=== PATIENT | male | born 1945 | race Caucasian/White ===

== ENCOUNTER → 2020-04-12 06:45 | Outpatient (CLI) | payer MEDICARE, SELFPAY ==
[2020-04-04 10:36] VITALS: BMI 33.4
--- NOTE | 2020-04-12 13:01 | STRESSREP_ITS ---
Stress Test Report Date: 04-12-2020 Procedure: Exercise tolerance test/imaging study Indications: Syncope; PSVT; chest pain Consent: Per the patient Procedure: The patient exercised on a Viral protocol for 4 minutes and 15 seconds completing Stage I and 1 minute and 15 seconds of Stage II achieving a peak heart rate of 169 bpm (114% predicted maximal heart rate) with a peak blood pressure 192/84 mmHg and a peak MET capacity of 6 METs. The baseline ECG demonstrated sinus rhythm; right bundle branch block pattern. The peak exercise ECG demonstrated continued right bundle branch block pattern. There were occasional PVCs during exercise and early recovery. The functional capacity was considered decreased. There was no complaint of chest discomfort during exercise or recovery. The examination was discontinued secondary to dyspnea. Impression: 1. Technically adequate (percent predicted maximal heart rate greater than 85%) exercise tolerance test 2. Peak exercise ECG with continued right bundle branch block pattern 3. There were occasional PVCs during exercise and early recovery 4. Nuclear images pending Myocardial perfusion imaging study: Technique: The patient was injected with 14.4 mCi of technetium 99m Cardiolite and subsequently rest SPECT Cardiolite nuclear imaging was obtained in the horizontal long, vertical long, and short axis views. The patient exercised on a Viral protocol for 4 minutes and 15 seconds completing Stage I and 1 minute and 15 seconds of Stage II achieving a peak heart rate of 169 bpm (114% predicted maximal heart rate) with a peak blood pressure 192/84 mmHg and a peak MET capacity of 6 METs. The patient was injected with 44.5 mCi of technetium 99m Cardiolite and subsequently stress SPECT Cardiolite nuclear imaging was obtained in the horizontal long, vertical long, and short axis views. A gated Cardiolite study at peak stress was obtained. Interpretation: Rest and stress SPECT Cardiolite nuclear imaging status post realignment, normalization, and attenuation correction, demonstrates the appearance at rest of diminished tracer uptake in portions of the distal anterior/anteroapical segments and status post stress the appearance of diminished tracer uptake in portions of the mid to distal anterior/anterior apical segments. There is end systolic thickening and brightening. The gated Cardiolite study demonstrates myocardial thickening and inward wall motion. The reported LVEF is 57%. Impression: 1. Rest and stress SPECT Cardiolite nuclear imaging demonstrate myocardial pe rfusion changes potentially compatible with an area of previous myocardial injury/infarction in the anterior/anteroapical segments with post-rest myocardial perfusion changes potentially compatible with an area of taylor-infarct related myocardial ischemia. 2. The gated Cardiolite study reports an LVEF of 57%. This note was generated with [employer]affold[employer] software. It may contain incorrect words, spelling, and punctuation that were not noted in checking the note before signing.
== END ==
PROVIDERS: Visit Provider Internal Medicine Cardiovascular Disease
DX: R55 Syncope and collapse (principal); I47.1 Supraventricular tachycardia; E78.00 Pure hypercholesterolemia, unspecified; I10 Essential (primary) hypertension; C85.10 Unspecified B-cell lymphoma, unspecified site; I49.3 Ventricular premature depolarization; R07.9 Chest pain, unspecified
CPT/HCPCS: 78452; 93017; 93225; 93226; A9500; A4216

== ENCOUNTER 2020-04-26 07:31 | Day surgery (SDC) | payer MEDICARE, SELFPAY ==
[2020-04-04 10:36] VITALS: BMI 33.4
--- NOTE | 2020-04-20 08:49 | RAD_ITS ---
STUDY: X-RAY CHEST REASON FOR EXAM: Male, 75 years old. Shortness of breath, intermittent chest pain. TECHNIQUE: PA and lateral views of the chest. COMPARISON: None. FINDINGS: A right-sided portacatheter is seen with the tip at the junction of the superior vena cava and right atrium. The lungs are clear and expanded. There is no demonstrated pleural abnormality. Normal size heart. Normal mediastinum and sol. Normal visualized pulmonary arteries. There is atherosclerotic calcification of the aortic arch with tortuosity. There are mild degenerative changes of the visualized thoracic spine. Normal visualized ribs, clavicles, and shoulders. There is no demonstrated abnormality of the visualized soft tissue structures of the upper abdomen. RAD/Chest PA and Lateral IMPRESSION: No acute abnormality is seen. Electronically Signed: Broderick Saul MD at 9:29 EST , Service support ,
[2020-04-20 10:27] LABS: Hematocrit 38.4 % (40-54); Hemoglobin 12.9 g/dL (13.0-16.5); Mean Corp Hgb Conc 33.6 g/dL (32-36); Mean Corpuscular Hgb 31.6 pg (27.0-32.0); Mean Corpuscular Volume 94.1 fL (80-94); Mean Platelet Vol. 9.6 fl (6.2-12.0); Platelet Count 179 K/mm3 (150-450); RBC Distribution Width CV 12.4 % (11.6-14.6); RBC Distribution Width SD 42.6 fl (35.1-43.9); Red Blood Count 4.08 M/mm3 (4.6-6.2)
[2020-04-20 10:33] LABS: Prothrombin Time (Protime)PT. 12.4 SECONDS (11.7-14.9)
[2020-04-20 10:34] LABS: Partial Thromboplast Time 26.2 Seconds (24.1-36.2)
[2020-04-20 11:29] LABS: Anion Gap 6 (5-15); BUN 15 mg/dL (7-18); BUN/Creat Ratio 14.7 RATIO (10-20); Calcium,Total 8.5 mg/dL (8.5-10.1); Chloride 104 mmol/L (98-107); Creatinine, Serum 1.02 mg/dL (0.70-1.30); EST Glomerular Filtration Rate 76 mL/min (>60); Est Glom Filt Rate - Afr Amer 92 mL/min (>60); Glucose 86 mg/dL (74-106); Potassium 4.6 mmol/L (3.5-5.1); Sodium Level 135 mmol/L (136-145)
[2020-04-25 07:46] VITALS: BMI 33.4
[2020-04-26] VITALS (14 sets, daily range): BP systolic 122–148; BP diastolic 70–106; PULSE 54–75; RESP 14–20; TEMP 36.6–36.7; O2SAT 95–99
--- NOTE | 2020-04-26 06:50 | HP_ITS ---
HPI HPI History of Present Illness Details: This is a 75-year-old white male who presents today for outpatient cardiovascular consultation based upon concerns of a PSVT noted on recent transthoracic echocardiogram performed at the [facility] in preparation for upcoming chemotherapy for a diffuse large B-cell lymphoma. He states he has been evaluated by cardiology in the past including remote evaluation by Dr. Osvaldo Cordova which included an exercise tolerance test at [facility] in [place], [place] as well as since that time evaluation through the [facility] with an exercise tolerance test. He notes that these tests were being performed based upon a history of syncope. Along with these test he believes he had undergone evaluation with some form of ambulatory patient monitor. To the best of his knowledge his test revealed no findings and he did not require any additional medical therapy or diagnostic studies. He states that he does have occasional sensation of palpitations. He does not recall any palpitations during his recent transthoracic echocardiogram when he had his report of PSVT. He states he gets an uncomfortable feeling in his chest at times at home. He states it feels as if there is a knot in his chest. It does not radiate. It is not necessarily associated with nausea, emesis, or diaphoresis. He believes his breathing is somewhat short of breath because of his lymphoma which is primarily involving his lymph nodes in his neck. He has not had orthopnea or PND or worsening peripheral pitting edema. He states he has not had any recurrent syncopal spells. He had an ECG in the office today. He was noted to be in sinus rhythm with a right bundle branch block pattern. His [facility] transthoracic echocardiogram which was reported on 03-31-2020 stated his left ventricle was normal with an LV EF of 67% with trace to mild TR. His previous cardiovascular studies are unavailable for review. Intake Vital Signs 04/04/20 Height 5 ft 10 in 04/04/20 Weight: 233 lb 2 oz 04/04/20 BP 140/80 H 04/04/20 Blood Pressure Location Lt brachial 04/04/20 Position Sitting 04/04/20 Respiration 16 04/04/20 Pulse 76 04/04/20 Pulse Source Auscultation Intake Visit Reasons: TACHYCARDIA/ [facility] REFERRAL Dining [employer] Required: No Accompanied by: Self Is patient in pain?: No Allergies No Known Allergies Allergy (Unverified 04/04/20 10:36) Medications allopurinol 100 mg tablet 100 mg PO DAILY 04/01/20 [History Confirmed 04/04/20] cholecalciferol (vitamin D3) 125 mcg (5,000 unit) capsule 125 mcg PO DAILY 04/01/20 [History Confirmed 04/04/20] lisinopril 10 mg tablet 10 mg PO DAILY 04/01/20 [History Confirmed 04/04/20] oxycodone-acetaminophen 5 mg-325 mg tablet 1 tab PO Q6H PRN 04/01/20 [History Confirmed 04/04/20] pantoprazole 20 mg tablet,delayed release 20 mg PO DAILY 04/01/20 [History Confirmed 04/04/20] simvastatin 40 mg tablet 40 mg PO QHS 04/01/20 [History Confirmed 04/04/20] PFS Medical History Pure hypercholesterolemia (Chronic) Essential hypertension (Chronic) Large B-cell lymphoma (Chronic) Left renal mass (Chronic) Tachycardia (Acute) Follicular lymphoma (Chronic) History of prostate cancer (Acute) Surgical History History of bone marrow biopsy (Resolved) History of cataract surgery (Resolved) History of prostatectomy (Resolved) lymph nodes removed (Resolved) Social History (Updated 04/04/20 @ 11:[address] Niall Valadez MD) Smokeless tobacco user: chewing tobacco alcohol intake: current details: rare substance use type: does not use caffeine: Yes Type: coffee Number of servings: 3 ROS Const Const: Positive for fatigue (HX lymphona); negative for weakness, frequent falls, excessive sweating, weight gain or weight loss Eyes Eyes: Negative for transient loss of vision, blurry vision or change in vision ENT ENT: Negative for dizziness or balance problems Cardio Chest Pain: No Palpitations: No Edema: None Muscle aches with walking: None Resp Respiratory: Positive for SOB with activity (neck swollen at this time); negative for SOB at rest GI GI: Negative vomiting or vomiting blood/hematemesis : Negative for hematuria Musc Musc: Negative for muscle aches/ myalgia, muscle weakness, joint pain or balance problems Skin Skin: Negative non-healing lesions or rash Neuro Neuro: Positive for syncope (x4-5yrs ago,nothing recent); negative for dizziness, lightheadedness, orthostatic symptoms, frequent falls, weakness or blurry vision Aaron Hematologic/Lymphatic: Negative for easy bleeding Endo Endo: Positive for fatigue (HX lymphona); negative for excessive sweating Psych Psych: Negative for anxiety or depression Allergy Allergy/Immunology: Negative for hives, Negative for rash Cardiology Exam Const Appearance: cooperative, healthy appearing, comfortable, no acute distress, well developed and well groomed Nutritional Appearance: obese Orientation: alert, awake and oriented x3 Head Head: normal to inspection, normocephalic and atraumatic Ears: hearing grossly normal bilaterally Nose: external nose normal Face and Sinus: face symmetric Eyes Eyelids: eyelids normal Conjunctivae: conjunctivae normal Pupils: PERRL EOM: EOM intact bilaterally Neck Neck: normal visual inspection and full ROM Carotids: normal carotid upstroke Chest Chest inspection: normal inspection of the chest, symmetric chest movement and normal respiratory effort Auscultation: Bilateral: Clear to Auscultation Cardio Palpation: normal PMI Rate: regular rate Rhythm: regular rhythm Heart sounds: S1 normal and S2 normal GI GI: normal to inspection, soft, bowel sounds present and obese Neuro General: alert, awake, oriented x3 and moves all extremities Skin Skin: no rashes or lesions noted Extremities Pulses: Normal: Right Radial Pulse, Left Radial Pulse Lower Extremity Edema: None: Bilateral Psych Psychological: normal affect Assessment & Plan 1. Paroxysmal supraventricular tachycardia I47.1 Plan He is reported as having an episode of PSVT during his transthoracic echocardiogram. There were no cardiac rhythm strips available for review. At the present time he appears to be without acute symptoms or adverse events. He will be asked to have an outpatient Holter monitor and attempt to assess his average rate and rhythm to assist in his evaluation and care. Depending upon his clinical course he may or may not need other forms of ambulatory cardiac monitoring devices. Orders Orders: Cardiac Holter Monitor, Set-Up Today Nuclear Stress Test - [facility] Today 2. Syncope, unspecified syncope type R55 Plan He has a remote history of syncope. He states he is undergone cardiovascular evaluation for this in the past with no definitive diagnosis. An attempt will be made to retrieve copies of his previous cardiovascular studies. Orders Orders: Cardiac Holter Monitor, Set-Up Today Nuclear Stress Test - [facility] Today 3. Pure hypercholesterolemia E78.00 Plan Is increase his cardiovascular risks. He is on medical management. Orders Orders: Cardiac Holter Monitor, Set-Up Today Nuclear Stress Test - Treadmil Today 4. Essential hypertension I10 Plan He has a history of hypertension. He will continue his medical therapy at this time. Orders Orders: Cardiac Holter Monitor, Set-Up Today Nuclear Stress Test - [facility] Today 5. Precordial pain R07.2 Plan He describes a history of precordial chest discomfort. It is unclear whether this is cardiovascular noncardiovascular related. Based upon his history, his recent objective findings, it was felt reasonable that he should be screened for further cardiovascular concerns with an exercise tolerance test/imaging study to evaluate for any obvious underlying CAD/myocardial ischemia that would warrant further evaluation and care. 6. Large B-cell lymphoma C85.10 Plan He has a history of large B-cell lymphoma. He will continue under the care of [facility] oncology. Orders Orders: Cardiac Holter Monitor, Set-Up Today Nuclear Stress Test - [facility] Today Plan Detail Other Orders Orders: 12 Lead EKG performed by [facility] Today R00.0 Additional Comments Overall from a cardiac standpoint he will continue his cardiovascular evaluation. He will also continue to follow with [facility] hematology/oncology for his lymphoma evaluation and care. It does not appear at this time it does not appear that he needs to withhold chemotherapy initiation pending further cardiac evaluation. Certainly if his clinical course changes this can be reconsidered. The above was discussed with him and he was agreeable to this approach. Follow Up 04/04/20 (copy of [facility] stress test) 3 Months (PFM) Coding Level of Care Code Off vis,new,level 4 Diagnoses Paroxysmal supraventricular tachycardia I47.1 Syncope, unspecified syncope type R55 ??Syncope type: unspecified Pure hypercholesterolemia E78.00 Essential hypertension I10 Precordial pain R07.2 ??Chest pain type: precordial pain Large B-cell lymphoma C85.10 Coding Level of Care Code Off vis,new,level 4 Diagnoses Paroxysmal supraventricular tachycardia I47.1 Syncope, unspecified syncope type R55 ??Syncope type: unspecified Pure hypercholesterolemia E78.00 Essential hypertension I10 Precordial pain R07.2 ??Chest pain type: precordial pain Large B-cell lymphoma C85.10 Supplemental Info Supplemental Information Diagnostics Electrocardiogram 04/04/20 I have examined the patient the following changes are noted: The patient has undergone subsequent evaluation with an exercise tolerance test/nuclear imaging study. The results are noted below. Stress Test Report Date: 04-12-2020 Procedure: Exercise tolerance test/imaging study Indications: Syncope; PSVT; chest pain Consent: Per the patient Procedure: The patient exercised on a Viral protocol for 4 minutes and 15 seconds completing Stage I and 1 minute and 15 seconds of Stage II achieving a peak heart rate of 169 bpm (114% predicted maximal heart rate) with a peak blood pressure 192/84 mmHg and a peak MET capacity of 6 METs. The baseline ECG demonstrated sinus rhythm; right bundle branch block pattern. The peak exercise ECG demonstrated continued right bundle branch block pattern. There were occasional PVCs during exercise and early recovery. The functional capacity was considered decreased. There was no complaint of chest discomfort during exercise or recovery. The examination was discontinued secondary to dyspnea. Impression: 1. Technically adequate (percent predicted maximal heart rate greater than 85%) exercise tolerance test 2. Peak exercise ECG with continued right bundle branch block pattern 3. There were occasional PVCs during exercise and early recovery 4. Nuclear images pending Myocardial perfusion imaging study: Technique: The patient was injected with 14.4 mCi of technetium 99m Cardiolite and subsequently rest SPECT Cardiolite nuclear imaging was obtained in the horizontal long, vertical long, and short axis views. The patient exercised on a Viarl protocol for 4 minutes and 15 seconds completing Stage I and 1 minute and 15 seconds of Stage II achieving a peak heart rate of 169 bpm (114% predicted maximal heart rate) with a peak blood pressure 192/84 mmHg and a peak MET capacity of 6 METs. The patient was injected with 44.5 mCi of technetium 99m Cardiolite and subsequently stress SPECT Cardiolite nuclear imaging was obtained in the horizontal long, vertical long, and short axis views. A gated Cardiolite study at peak stress was obtained. Interpretation: Rest and stress SPECT Cardiolite nuclear imaging status post realignment, normalization, and attenuation correction, demonstrates the appearance at rest of diminished tracer uptake in portions of the distal anterior/anteroapical segments and status post stress the appearance of diminished tracer uptake in portions of the mid to distal anterior/anterior apical segments. There is end systolic thickening and brightening. The gated Cardiolite study demonstrates myocardial thickening and inward wall motion. The reported LVEF is 57%. Impression: 1. Rest and stress SPECT Cardiolite nuclear imaging demonstrate myocardial perfusion changes potentially compatible with an area of previous myocardial injury/infarction in the anterior/anteroapical segments with post-rest myocardial perfusion changes potentially compatible with an area of taylor-infarct related myocardial ischemia. 2. The gated Cardiolite study reports an LVEF of 57%. The patient has been recommended for further evaluation with diagnostic cardiac catheterization. The procedure and risks of been discussed with the patient. He is agreeable to this approach. The surgeon/proceduralist and patient have discussed in detail the risk of exposure to and/or potential harm posed by the COVID-19 virus with having a surgery/procedure at this time versus the risk of delaying the surgery/procedure. It is not possible to know either the risk of delaying the surgery or procedure or chance of getting an infection with perfect accuracy, but a joint decision was made between the patient and the surgeon/proceduralist to proceed at this time with the scheduled surgery/procedure as indicated on the consent form. I have re-examined the patient. There are no clinical changes since date of exam.
--- NOTE | 2020-04-26 12:15 | EKG12_ITS ---
Test Reason : PCI Blood Pressure : / mmHG Vent. Rate : 057 BPM Atrial Rate : 057 BPM P-R Int : 210 ms QRS Dur : 148 ms QT Int : 444 ms P-R-T Axes : 012 108 086 degrees QTc Int : 432 ms Sinus bradycardia with 1st degree A-V block Right bundle branch block Consider right ventricular involvement in acute inferior infarct Abnormal ECG No previous ECGs available Confirmed by LILLIE WHITE, BRENNEN ([id number]), technical writer and editor MARIA LUZ BRENNAN ([id number]) on 04/27/2020 1:24:18 PM Referred By: Niall Valadez Confirmed By:BRENNEN MOREIRA MD
--- NOTE | 2020-04-26 12:18 | PCI.CARDCATH ---
PCI Cardiac Cath Report PCI Report: Procedure performed; 1. Successful PCI of 80% stenosis mid LAD, with predilatation and placement of a drug-eluting stent 2.5 x 26 mm resolute/TORI. Post stent placement 0% stenosis. Preop procedure VIVIANA III flow and postprocedure VIVIANA-3 flow. 2. Postdilatation using 2.75 x 20 mm NC balloon up to 20 MAC and achievement of excellent result. 3. Successful PTCA of proximal RCA diffuse 80% stenosis, post PTCA is around 30% stenosis VIVIANA III flow in the RCA prior to PTCA and VIVIANA-3 flow post PTCA with no dissection or flow limitation. 4. Unable to place the stent in the RCA due to tortuosity and diffuse atherosclerosis. 5. Use of general anesthesia for removal of the guide catheter 6 Belarusian AL-1 due to severe spasm in the radial artery as well as kinking of the catheter Inside the 6 Bel[place]ian sheath. 6. TR band applied to right radial artery with no complication. Preprocedure details; 75-year-old patient with history of type B cell lymphoma currently on chemotherapy, patient underwent cardiac catheterization by Patient has evaluation in the office with the nuclear stress test which showed ischemia in the left anterior descending artery distribution. Based on his clinical presentation and having symptoms of shortness of breath on exertion he underwent cardiac catheterization which I reviewed and discussed in detail with the patient and Dr. Valadez, noted patient had diffuse atherosclerosis involving a large dominant RCA proximal to mid At least around 80% stenosis distal RCA prior to the bifurcation had around 40% stenosis eccentric atherosclerosis. He had left main which is normal with tapering of the left main, with nonobstructive atherosclerosis of around 30% of the distal left main, mid LAD at significant atherosclerosis involving the sidebranch small vessel. Ostial left circumflex had around 60 to 70%. Please refer to detailed cardiac authorization report by patient has borderline LV dysfunction EF probably around 50%. Consent risk benefits of the procedure explained in detail to the patient elected to proceed informed consent obtained. Sedation patient sedated with intravenous Versed and intravenous fentanyl. Interventional plan and equipment used; We proceed with the 6 Bel[place]ian JL 3.5 guide catheter engaged the left main coronary artery without difficulty, use run-through wire across the lesion in the LAD Then , proceed with predilatation using 2 x 15 mm balloon to the mid LAD followed by 2.5 x 26 mm drug-eluting stent/resolute placed in the mid LAD This is followed by 2.75 x 20 mm NC balloon, patient was given heparin a total of 7000 units of heparin initially ACT was 2.41 he was given additional 2000 units of heparin. Patient has been already on aspirin and Plavix this morning. Angiographic view of the LAD showed VIVIANA-3 flow pre and post procedure with reduction of stenosis from 80% mid LAD to 0% and excellent result. Then we proceed with the plan of, PCI of the large dominant RCA. We used JR4 guide catheter, run-through wire, BMW, choice PT extra-support wire, we engaged the RCA ostium and then we proceed with the wire across the lesion and then we predilated the lesion. The RCA is a large dominant with the large bend proximally in the RCA That make it difficult to place a stent, we use different wires, tan wire with the choice PT extra-support still unable to place a stent in the proximal to mid RCA. Then we change the plan of a guide catheter using AL-1 guide, noted kinking of the guide catheter at the site of the right radial artery sheath with difficulty of passing the wire. At this point with general incision he was given propofol to relax artery and we were able to remove the sheath as well at the AL-1 guide catheter as 1 part. With no complication. TR band applied to right radial artery to maintain hemostasis. Patient was given further 300 mg of Plavix in the Lead Java [id number] Developer. Recommendation and plan; Medical treatment with the dual antiplatelet therapy aspirin and Plavix for nearly 1 year if no complication and low-dose aspirin indefinitely. We will plan for elective PCI of the proximal to mid RCA using femoral approach due to the complexity of the lesion and difficulty of the guide catheter selection.
[2020-04-26] MEDS: 0.9% Normal Saline 1,000 ML 75 ML IV (12:42)
--- NOTE | 2020-04-26 13:06 | CRPHASE1 ---
Patient Communication Former Patient:: Phase I PHII Cardiac Rehab Discussed with Patient:: Yes Guide to Cardiac Rehab Given to Patient:: Yes Cardiac Rehab Facility Choice List Given to Patient:: Yes Choice Program [facility] CR PHII:: Communication Given to CR Choice Program Other:: Communication Given to CR Refer Phase II Cardiac Rehab:: Yes Sessions:: 36 sessions - 3 days/wk, 12 weeks Risk Factors/Lifestyle Smoking Status: Former smoker Second-Hand Smoke:: No Hx Hypertension: Yes Hx Diabetes Mellitus Type 1: No Hx Diabetes Mellitus Type 2: No Hx Metabolic Disorders: No Hx Dyslipidemia: Yes Hx Obesity: Yes Post-Menopausal: No Stress: Long-standing ETOH: Yes Caffeine: No Substance Abuse: No Risk Factor for Sedentary Lifestyle: Moderate Risk Past Cardiac Illness: Coronary Artery Disease Phase I Education Given On:: [place], Nutrition, Antiplatelet medication, Smoking cessation Issues Affecting Care:: None Knowledge of Condition:: No Learning Preferences: Verbal Cardiac Rehabilitation Info Cardiac Rehabilitation Program Information: Cardiac Rehabilitation is important for patients like you who are recovering from a heart problem. Cardiac rehabilitation programs are recognized as integral to the continued care of the patient with coronary heart disease. The cardiac rehabilitation program is designed to optimize a patient's physical, psychological, and social functioning. Health rn primary care work in cardiac rehabilitation programs and assist you with getting the treatments you need to get stronger and healthier - like exercise, healthy eating habits, and medications. Cardiac rehabilitation has been show to help people with heart problems live longer and have better life enjoyment than people who do not go to cardiac rehabilitation. Please contact the Cardiac Rehabilitation Program at [facility] at in two weeks if you have not heard from them.
--- NOTE | 2020-04-26 13:09 | CRPH1.INSTRU ---
General Education CAD and cardiac anatomy and function:: Patient communicates acknowledgment, Family communicates acknowledgment, Needs reinforcement Explanation of diagnoses and procedures:: Patient communicates acknowledgment, Family communicates acknowledgment, Needs reinforcement Sign/Symptoms of CT:: Patient communicates acknowledgment, Family communicates acknowledgment, Needs reinforcement Antiplatelet therapy: Patient communicates acknowledgment, Family communicates acknowledgment, Needs reinforcement Proper use of NTG-SL: Patient communicates acknowledgment, Family communicates acknowledgment, Needs reinforcement Emergency procedures and activation of EMS: Patient communicates acknowledgment, Family communicates acknowledgment, Needs reinforcement Compliance of all prescribed medications: Patient communicates acknowledgment, Family communicates acknowledgment, Needs reinforcement Smoking Recommendations Include:: Previous smoker; encourage continued cessation Nicotine/Smoking Response Code:: Patient communicates acknowledgment, Family communicates acknowledgment Dyslipidemia Patient Dyslipidemia Risk Factors Are:: Total Cholesterol, Triglycerides, HDL, LDL Recommendations Include:: Lipid profile not available, Reviewed NCEP/ATP guidelines, Therapeutic Lifestyle Change dietary guidelines Dyslipidemia Response Code:: Patient communicates acknowledgment, Family communicates acknowledgment, Needs reinforcement Overweight/Obesity Patient Overweight/Obesity Risk Factors Are:: Obesity - > or = 30 Recommendations Include:: Weight loss of 5-10%, Reduced calorie diet, Exercise 5-7 times/week Overweight/Obesity:: Patient communicates acknowledgment, Family communicates acknowledgment, Needs reinforcement Hypertension Recommendations Include:: Maintain BP <130/85, DASH dietary guidelines, Decrease/maintain normal body weight, Moderation of ETOH Hypertension:: Patient communicates acknowledgment, Family communicates acknowledgment, Needs reinforcement Diabetes Patient Diabetes Risk Factors Are:: No documented hx of diabetes Sedentary Patient Sedentary Risk Factors Are:: Lack of regular exercise Recommendations Include:: Aerobic exercise 5-7 times/week for 20-30 minutes continuously, Benefits of regular exercise, Discussed home walking program, Monitored Outpatient Cardiac Rehab Sedentary Response Code:: Patient communicates acknowledgment, Family communicates acknowledgment, Needs reinforcement Stress Patient Stress Risk Factors Are:: Patient denies stress as a risk factor Recommendations Include:: Identification of stressors, and assessment of coping skills, Stress management techniques Stress Response Code:: Patient communicates acknowledgment, Family communicates acknowledgment, Needs reinforcement
--- NOTE | 2020-04-26 14:45 | PCS.PANDOC ---
PANDEMIC DOCUMENTATION INITIATED: Date: 04/26/2020 Time: 6534
--- NOTE | 2020-04-26 16:35 | CL.D_ITS ---
Patient Name: FOSTER MOMIN Study Date: 04/26/2020 Performing: Niall Valadez MD Ht: 70 inches 178 cm : 1945 Wt: 234 lbs 106 kg Age: 75 Gender: male BSA: 2.23 PROCEDURE(S) PERFORMED [id number] W OR WO PTCA, SINGLE CORONARY ARTERY [id number], SINGLE CORONARY ARTERY CLINICAL PROFILE AND INDICATIONS Indications: Suspected CAD Heart Failure: None Stress/Imaging Date: 04/12/2020tress Test with SPECT MPI: Positive Intermediate Risk Angina Classification Anginal Classification w/in 2 Weeks: CCS III CAD Presentations: Stable angina. CONCLUSIONS Normal Left Ventricular End Diastolic Pressure Segmented LV systolic dysfunction- Mild LVEF: by LV gram 50 % [place] Multivessel CAD RECOMMENDATIONS Risk factor modification Medical therapy Referred for immediate PCI DESCRIPTION OF PROCEDURE The patient arrived to the procedure lab. The risks and benefits of the procedure as well as a full d escription of our services here and current unavailability of surgical backup were fully explained to the patient and/or their significant other prior to the catheterization. The Timeout was completed, verifying the correct patient and procedure. The patient's procedural site was prepped and draped in the usual fashion. Local anesthetic was given subcutaneously to right radial region with Lidocaine 2% . Using a modified Seldinger technique, arterial access was obtained via the right radial artery, a 6 Fr sheath was inserted. Right Coronary Artery selective angiography was then performed in multiple v iews using a 5 Fr. 4.0 [place] catheter. Left Coronary Artery selective angiography was performed in mu ltiple views using a 5 Fr. JL3.5 catheter. Left Ventriculography was performed in FALL projection usin g a 5 Fr. Pigtail catheter. LV to AO pullback pressures were then recorded.The arterial sheath was pulled and manual compression applied until hemostasis is achieved. CORONARY ANGIOGRAPHY DOMINANCE: Right Dominant LEFT HEART ASSESSMENT Left Ventricular Ejection Fraction: by LV Gram 50 % Anterior Hypokinesis Normal Left Ventricular End Diastolic Pressure LVEDP: 2 mmHg LEFT MAIN: Distal: 25 % Stenosis LEFT ANTERIOR DESCENDING ARTERY: PROX LAD: Mild calcification, 90 % Stenosis DIAGONAL 1: Mid - pre bifurcation: hazy: 25 - 50 % Stenosis CIRCUMFLEX ARTERY: OSTIAL CIRC: 50 % Stenosis MID CIRC: Mild luminal irregularities RIGHT CORONARY ARTERY: Mild calcification Mild luminal irregularities MID RCA: diffuse: eccentric: hazy: 75 % Stenosis DISTAL RCA: diffuse: eccentric: 25 - 50 % Stenosis AORTIC ROOT: Angiographically normal COMPLICATIONS No Complications PROCEDURE MEDICATIONS Fentanyl 50 mcg IV Versed 1 mg IV Versed 2 mg IV Oxygen: 2 L/min via nasal cannula Heparin diluted in 23cc Heparinized saline. Patient given 10cc IA of this solution. 04/26/2020 09:17:5 3 Heparin 7000 unit(s) IV 04/26/2020 09:57:32 Heparin 2000 unit(s) IV 04/26/2020 10:22:43 Nitro 200 mcg IC 04/26/2020 10:16:29 Nitro 200 mcg IC 04/26/2020 10:16:29 Nitro 200 mcg IC 04/26/2020 11:08:40 Plavix 300 mg PO 04/26/2020 11:53:31 Verapamil 2.5mg, Ntg 100mcgs, 2000 units of Heparin diluted in 23cc Heparinized saline. Patient give n 10cc IA of this solution. 04/26/2020 09:17:53 SUMMARY OF HEMODYNAMIC DATA Time AIR REST ECG 07:52:23 AO 91/52 (68) SA 09:27:57 LV 114/-16, 3 09:41:03 LV 114/-18, 2 09:41:08 LV 115/-13, 4 09:42:00 LV 115/-16, 3 09:42:06 LVp 116/-18, 3 09:42:10 AOp 114/58 (75) 09:42:15 Signed By Niall Valadez MD On 04/26/2020 16:34:35 Niall Valadez MD
[2020-04-26] MEDS: Atorvastatin Calcium 20 MG Tablet PO (21:21)
[2020-04-26] MEDS: Metoprolol Tartrate 25 MG Tablet 12.5 MG PO (21:31)
[2020-04-27 03:00] VITALS: PULSE 54
[2020-04-27 03:25] VITALS: BP 126/54; PULSE 65; RESP 18; TEMP 36.4; O2SAT 96
[2020-04-27 05:50] LABS: Absolute Lymphocyte Count 1.03 X10^3/uL (0.83-4.51); Absolute Neutrophil Count 7.3 X10^3/uL (2.0-7.7); Basophil# 0.12 X10^3/uL; Basophil% 1.2 % (0-1); Eosinophil# 0.01 X10^3/uL; Eosinophils% 0.1 % (0-5); Hematocrit 36.1 % (40-54); Hemoglobin 12.3 g/dL (13.0-16.5); Lymphocyte # 1.03 X10^3/ul (4.0); Lymphocyte % 10.7 % (19-41); Mean Corp Hgb Conc 34.1 g/dL (32-36); Mean Corpuscular Hgb 31.7 pg (27.0-32.0); Mean Platelet Vol. 9.5 fl (6.2-12.0); Monocyte# 0.85 X10^3/uL; Monocyte% 8.8 % (0-10); NRBC Flagged by Analyzer 0 % (0-5); Neutrophil # 7.32 X10^3/uL (2.7-7.7); Neutrophil % 76.2 % (47-70); Platelet Count 198 K/mm3 (150-450); RBC Distribution Width CV 12.5 % (11.6-14.6); RBC Distribution Width SD 41.2 fl (35.1-43.9); Red Blood Count 3.88 M/mm3 (4.6-6.2); White Blood Count 9.6 K/mm3 (4.4-11.0)
[2020-04-27 06:27] LABS: AST(SGOT) 19 U/L (15-37); Alanine Aminotransfer ALT/SGPT 28 U/L (16-61); Albumin, Serum 3.1 g/dL (3.2-5.0); Alkaline Phosphatase 64 U/L (45-117); Anion Gap 7 (5-15); BUN 15 mg/dL (7-18); BUN/Creat Ratio 15.6 RATIO (10-20); Calcium,Total 8.8 mg/dL (8.5-10.1); Chloride 108 mmol/L (98-107); Creatinine, Serum 0.96 mg/dL (0.70-1.30); EST Glomerular Filtration Rate 82 mL/min (>60); Est Glom Filt Rate - Afr Amer 99 mL/min (>60); Estimated Creatinine Clearance 70.76 ml/min; Globulin 3.1 g/dL (2.2-4.2); Glucose 89 mg/dL (74-106); Potassium 4.5 mmol/L (3.5-5.1); Protein, Total 6.2 g/dL (6.4-8.2); Sodium Level 139 mmol/L (136-145)
[2020-04-27 06:59] VITALS: PULSE 53
[2020-04-27 07:01] VITALS: O2SAT 95
[2020-04-27 08:08] VITALS: BP 136/69; PULSE 60; RESP 16; TEMP 36.2; O2SAT 95
[2020-04-27] MEDS: Lisinopril 10 MG Tablet PO (08:15)
[2020-04-27] MEDS: Clopidogrel Bisulfate 75 MG Tablet PO (08:15)
[2020-04-27 08:16] VITALS: BP 136/69; PULSE 60
[2020-04-27] MEDS: Metoprolol Tartrate 25 MG Tablet 12.5 MG PO (08:16)
[2020-04-27] MEDS: Aspirin E.C. 81 MG Tablet PO (08:16)
--- NOTE | 2020-04-27 08:48 | DCINST_ITS ---
- Discharge Diagnoses Current Active Problems: CAD status post PCI Reason(s) for Visit for Discharge Instructions: Angina pectoris. Abnormal stress test. Cardiac catheterization You will use the following diet at home:: Cardiac Your food should be the consistency of: Regular Discharge Activity: May Drive - May not drive: X24 hours, May Shower - May shower: Today, May Take a Tub Bath - A take a tub bath: in 7 days May resume sexual activity in: 2 weeks Weight Bearing Status: - - Avoid heavy exertional activity until 05-02-2020 Call your doctor if your incision/area has: Continuous Slow Oozing, Sudden Increased Bleeding, Increased Pain/ Swelling, Increased Redness, Foul Smelling Discharge, Swelling at the incision site Call your doctor if you observe: Fever of 101 or Higher, Shortness of breath, Fainting spells, Chest pain, Increased palpitations (irregular heartbeat) Remove Dressing in (days):: 1 Cleanse incision/area with: Soap & Water Additional Instructions: [facility]: To arrange outpatient cardiovascular follow-up appointment; laboratory studies, and staged PTCA/stent procedure Allergies/Adverse Reactions: Allergies No Known Allergies Allergy (Unverified 04/04/20 10:36) Medications to take at Discharge allopurinol 100 mg tablet 100 mg PO DAILY 04/01/20 cholecalciferol (vitamin D3) 125 mcg (5,000 unit) capsule 125 mcg PO DAILY 04/01/20 lisinopril 10 mg tablet 10 mg PO DAILY 04/01/20 oxycodone-acetaminophen 5 mg-325 mg tablet 1 tab PO Q6H PRN 04/01/20 pantoprazole 20 mg tablet,delayed release 20 mg PO DAILY 04/01/20 simvastatin 40 mg tablet 40 mg PO QHS 04/01/20 aspirin 81 mg tablet,delayed release 81 mg PO DAILY 04/19/20 clopidogrel 75 mg tablet 75 mg PO DAILY #30 tab 04/20/20 Clopidogrel Bisulfate [Plavix] 75 mg PO DAILY tablet 04/27/20 Lisinopril [Zestril] 10 mg PO DAILY tablet 04/27/20 Metoprolol Tartrate [Lopressor (beta kati)] 12.5 mg PO BID #60 tab 04/27/20 Nitroglycerin (INPATIENT USE) [Nitrostat] 0.4 mg SUBLINGUAL Q5M PRN #90 tab.subl 04/27/20 The following prescriptions were given: Metoprolol Tartrate [Lopressor (beta kati)] 12.5 mg PO BID #60 tab Transmission Status: Pending to [id number] Nitroglycerin (INPATIENT USE) [Nitrostat] 0.4 mg SUBLINGUAL Q5M PRN #90 tab.subl PRN Reason: Cardiac/Chest Pain Transmission Status: Pending to [id number] Orders to be completed after discharge: Phase II, Outpatient Cardiac Rehab Location: None Selected [facility] Care Physician: [facility] [Primary Care Provider] - Test Results: Test results from this visit will be discussed in further detail at your follow- up appointment, if applicable. Please Follow Up With: Niall Valadez MD When: To be arranged Proposed Discharge Date: 04/27/20
--- NOTE | 2020-04-27 08:52 | PCM.DC.SUM ---
Discharge Date and Diagnosis Date of Admission: 04/26/20 Date of Discharge: 04/27/20 - Primary Discharge Diagnosis Acute Problems: CAD status post PCI - Secondary Discharge Diagnosis Chronic Problems: Chronic Problems (Last Reviewed 04/04/20 @ 10:41 by Rosa Hernandez) Presence of stent in coronary artery (Chronic ~04/26/20) Successful PCI of 80% stenosis mid LAD, with predilatation and placement of a drug-eluting stent 2.5 x 26 mm resolute/TORI; Successful PTCA of proximal RCA diffuse 80% stenosis per cath 04/26/20 Atherosclerotic heart disease of [place] coronary artery without angina pectoris (Chronic) Pure hypercholesterolemia (Chronic) Essential hypertension (Chronic) Large B-cell lymphoma (Chronic) Left renal mass (Chronic) Follicular lymphoma (Chronic) Hospital Course and Treatment Procedures: Cardiac catheterization, - - Cardiac intervention Summary of Care Provided: The patient is a 75 year old white male with a history concerning for angina pectoris and an abnormal stress test who presented for evaluation with diagnostic cardiac catheterization. Diagnostic cardiac catheterization demonstrated underlying angiographically significant appearing CAD. Status post review of his case it was elected to proceed with PCI to the LAD and RCA distributions. The patient underwent PCI to the LAD with no adverse events. He underwent PTCA to the RCA, however, prior to stent placement to the RCA he experienced right upper extremity arterial vasospasm. The cardiac catheters were unable to be advanced or removed. The recommendation to relieve the arterial vasospasm was to increase the patient's state of relaxation/vasodilatation. Thus the patient underwent, per [employer]OSP[employer]IE[employer]CIAL [employer], administration of propofol. Once the fall took effect the patient demonstrated resolution of the arterial vasospasm in the cardiac catheter then able to be successfully removed without adverse event. At that time it was elected to discontinue the current procedure and allow the patient to recuperate from his procedure, have IV fluids to assist with IV contrast clearance, and to minimize excessive exposure to radiation, and plan to return on a separate day for a staged RCA PCI/stent procedure to be performed via the right femoral arterial approach. The patient was monitored overnight. He remains symptomatically and hemodynamically stable. He had no complaints of right upper extremity discomfort. He had no adverse cardiac catheterization site related events. On this day he was felt stable to be released home for continued outpatient follow-up. [] Subjective: The patient is awake and alert and in no acute distress. - Physical Exam Vitals/I&O's: Vital Signs Temp Pulse Resp BP Pulse Ox 97.2 F L 60 16 136/69 H 95 04/27/20 08:08 04/27/20 08:16 04/27/20 08:08 04/27/20 08:16 04/27/20 08:08 Oxygen Delivery Method Room Air Weight: 230 lb 9.656 oz Body Mass Index (BMI) 33.4 Intake and Output for Last 24 Hours 04/25/20 04/26/20 04/27/20 23:59 23:59 23:59 Intake Total 420 / 720 1693.75 / 1693.75 Balance 420 / 720 1693.75 / 1693.75 General: Alert, Oriented x3, Cooperative, No apparent distress HEENT: Atraumatic, PERRLA, EOMI, Normocephalic Neck: Supple, No JVD Lungs: Clear to auscultation Cardiovascular: Regular rate, Regular Rhythm, Normal S1, Normal S2 Abdomen: Bowel Sounds Present, Soft Extremities: No edema Neurological: Neuro grossly intact Psych/Mental Status: Normal Affect Comment: Right radial artery site: Pulse 2+/4+; no bruit; no hematoma Laboratory Results 04/27/20 05:14: WBC 9.6, RBC 3.88 L, Hgb 12.3 L, Hct 36.1 L, MCV 93.0, MCH 31.7, MCHC 34.1, RDW Std Deviation 41.2, RDW Coeff of Suzette 12.5, Plt Count 198, MPV 9.5, Immature Gran % (Auto) 3.000 H, Neut % (Auto) 76.2 H, Lymph % (Auto) 10.7 L, [place] % (Auto) 8.8, Eos % (Auto) 0.1, Baso % (Auto) 1.2 H, Absolute Neuts (auto) 7.3, Absolute Lymphs (auto) 1.03, Nucleated RBC % 0 04/27/20 05:14: Sodium 139, Potassium 4.5, Chloride 108 H, Carbon Dioxide 24.0, Anion Gap 7, BUN 15, Creatinine 0.96, Estim Creat Clear Calc 70.76, Est GFR (MDRD) Af Amer 99, Est GFR (MDRD) Non-Af 82, BUN/Creatinine Ratio 15.6, Glucose 89, Calcium 8.8, Total Bilirubin 0.40, AST 19, ALT 28, Alkaline Phosphatase 64, Total Protein 6.2 L, Albumin 3.1 L, Globulin 3.1, Albumin/Globulin Ratio 1.0 Cardiac catheterization: 04-26-2020 CONCLUSIONS Normal Left Ventricular End Diastolic Pressure Segmented LV systolic dysfunction- Mild LVEF: by LV gram 50 % [place] Multivessel CAD RECOMMENDATIONS Risk factor modification Medical therapy Referred for immediate PCI DESCRIPTION OF PROCEDURE The patient arrived to the procedure lab. The risks and benefits of the procedure as well as a full description of our services here and current unavailability of surgical backup were fully explained to the patient and/or their significant other prior to the catheterization. The Timeout was completed, verifying the correct patient and procedure. The patient's procedural site was prepped and draped in the usual fashion. Local anesthetic was given subcutaneously to right radial region with Lidocaine 2%. Using a modified Seldinger technique, arterial access was obtained via the right radial artery, a 6Fr sheath was inserted. Right Coronary Artery selective angiography was then performed in multiple views using a 5 Fr. 4.0 [place] catheter. Left Coronary Artery selective angiography was performed in multiple views using a 5 Fr. JL3.5 catheter. Left Ventriculography was performed in FALL projection using a 5 Fr. Pigtail catheter. LV to AO pullback pressures were then recorded.The arterial sheath was pulled and manual compression applied until hemostasis is achieved. CORONARY ANGIOGRAPHY DOMINANCE: Right Dominant LEFT HEART ASSESSMENT Left Ventricular Ejection Fraction: by LV Gram 50 % Anterior Hypokinesis Normal Left Ventricular End Diastolic Pressure LVEDP: 2 mmHg LEFT MAIN: Distal: 25 % Stenosis LEFT ANTERIOR DESCENDING ARTERY: PROX LAD: Mild calcification, 90 % Stenosis DIAGONAL 1: Mid - pre bifurcation: hazy: 25 - 50 % Stenosis CIRCUMFLEX ARTERY: OSTIAL CIRC: 50 % Stenosis MID CIRC: Mild luminal irregularities RIGHT CORONARY ARTERY: Mild calcification Mild luminal irregularities MID RCA: diffuse: eccentric: hazy: 75 % Stenosis DISTAL RCA: diffuse: eccentric: 25 - 50 % Stenosis AORTIC ROOT: Angiographically normal PCI: 04-27-2020 PCI Cardiac Cath Report PCI Report: Procedure performed; 1. Successful PCI of 80% stenosis mid LAD, with predilatation and placement of a drug-eluting stent 2.5 x 26 mm resolute/TORI. Post stent placement 0% stenosis. Preop procedure VIVIANA III flow and postprocedure VIVIANA-3 flow. 2. Postdilatation using 2.75 x 20 mm NC balloon up to 20 MAC and achievement of excellent result. 3. Successful PTCA of proximal RCA diffuse 80% stenosis, post PTCA is around 30% stenosis VIVIANA III flow in the RCA prior to PTCA and VIVIANA-3 flow post PTCA with no dissection or flow limitation. 4. Unable to place the stent in the RCA due to tortuosity and diffuse atherosclerosis. 5. Use of general anesthesia for removal of the guide catheter 6 Turkish AL-1 due to severe spasm in the radial artery as well as kinking of the catheter Inside the 6 Turkish sheath. 6. TR band applied to right radial artery with no complication. Preprocedure details; 75-year-old patient with history of type B cell lymphoma currently on chemotherapy, patient underwent cardiac catheterization by Patient has evaluation in the office with the nuclear stress test which showed ischemia in the left anterior descending artery distribution. Based on his clinical presentation and having symptoms of shortness of breath on exertion he underwent cardiac catheterization which I reviewed and discussed in detail with the patient and Dr. Valadez, noted patient had diffuse atherosclerosis involving a large dominant RCA proximal to mid At least around 80% stenosis distal RCA prior to the bifurcation had around 40% stenosis eccentric atherosclerosis. He had left main which is normal with tapering of the left main, with nonobstructive atherosclerosis of around 30% of the distal left main, mid LAD at significant atherosclerosis involving the sidebranch small vessel. Ostial left circumflex had around 60 to 70%. Please refer to detailed cardiac authorization report by patient has borderline LV dysfunction EF probably around 50%. Consent risk benefits of the procedure explained in detail to the patient elected to proceed informed consent obtained. Sedation patient sedated with intravenous Versed and intravenous fentanyl. Interventional plan and equipment used; We proceed with the 6 Turkish JL 3.5 guide catheter engaged the left main coronary artery without difficulty, use run-through wire across the lesion in the LAD Then , proceed with predilatation using 2 x 15 mm balloon to the mid LAD followed by 2.5 x 26 mm drug-eluting stent/resolute placed in the mid LAD This is followed by 2.75 x 20 mm NC balloon, patient was given heparin a total of 7000 units of heparin initially ACT was 2.41 he was given additional 2000 units of heparin. Patient has been already on aspirin and Plavix this morning. Angiographic view of the LAD showed VIVIANA-3 flow pre and post procedure with reduction of stenosis from 80% mid LAD to 0% and excellent result. Then we proceed with the plan of, PCI of the large dominant RCA. We used JR4 guide catheter, run-through wire, BMW, choice PT extra-support wire, we engaged the RCA ostium and then we proceed with the wire across the lesion and then we predilated the lesion. The RCA is a large dominant with the large bend proximally in the RCA That make it difficult to place a stent, we use different wires, tan wire with the choice PT extra-support still unable to place a stent in the proximal to mid RCA. Then we change the plan of a guide catheter using AL-1 guide, noted kinking of the guide catheter at the site of the right radial artery sheath with difficulty of passing the wire. At this point with general incision he was given propofol to relax artery and we were able to remove the sheath as well at the AL-1 guide catheter as 1 part. With no complication. TR band applied to right radial artery to maintain hemostasis. Patient was given further 300 mg of Plavix in the Radio Personality. Recommendation and plan; Medical treatment with the dual antiplatelet therapy aspirin and Plavix for nearly 1 year if no complication and low-dose aspirin indefinitely. We will plan for elective PCI of the proximal to mid RCA using femoral approach due to the complexity of the lesion and difficulty of the guide catheter selection. Current Medications Acetaminophen (Acetaminophen 325 Mg Tablet) 650 mg PO Q6H PRN PRN PRN Reason: Pain Score 1-10/Temp > 100.7 F Aspirin (Aspirin E.C. 81 Mg Tablet) 81 mg PO DAILY@0800 [facility] Last Admin: 04/27/20 08:16 Dose: 81 mg Documented by: Atorvastatin Calcium (Atorvastatin Calcium 20 Mg Tablet) 20 mg PO QHS [facility] Last Admin: 04/26/20 21:21 Dose: 20 mg Documented by: Atropine Sulfate (Atropine Sulfate 1 Mg/10 Ml Syringe) 0.5 mg IV UD PRN PRN Reason: HR <50 bpm Clopidogrel Bisulfate (Clopidogrel Bisulfate 75 Mg Tablet) 75 mg PO DAILY [facility] Last Admin: 04/27/20 08:15 Dose: 75 mg Documented by: Heparin Sodium (Beef Lung) (Heparin Pf Lock 10 Units/Ml 50 Units/5 Ml Syringe) 50 units IV UD PRN PRN Reason: Port-a-Cath (VAD)Heparin Flush Labetalol HCl (Labetalol (Prefilled) 20 Mg/4 Ml) 5 mg IV X1 PRN PRN Reason: SBP >160 when pulling sheath Stop: 04/28/20 12:12 Lisinopril (Lisinopril 10 Mg Tablet) 10 mg PO DAILY [facility] Last Admin: 04/27/20 08:15 Dose: 10 mg Documented by: Metoprolol Tartrate (Metoprolol Tartrate 25 Mg Tablet) 12.5 mg PO BID [facility] Last Admin: 04/27/20 08:16 Dose: 12.5 mg Documented by: Nitroglycerin (Nitroglycerin (Inpatient Use) 0.4 Mg Tab.Subl) 0.4 mg SUBLINGUAL Q5M PRN PRN Reason: CARDIAC/CHEST PAIN Sodium Chloride (0.9% Normal Saline 500 Ml Iv.Soln.) 500 ml IV BOLUS PRN PRN Reason: VASO-VAGAL PROTOCOL Sodium Chloride (0.9% Saline Lock 10 Ml Syringe) 10 - 40 ml IV UD PRN PRN Reason: Port-a-Cath (VAD) Flush Sodium Chloride (0.9 % Nacl (Sterile) Posiflush 10 Ml) 10 - 40 ml IV UD PRN PRN Reason: Port access or dressing change Discharge Activity: May Drive - May not drive: X24 hours, May Shower - May shower: Today, May Take a Tub Bath - A take a tub bath: in 7 days May resume sexual activity in: 2 weeks Weight Bearing Status: - - Avoid heavy exertional activity until 05-02-2020 Call your doctor if your incision/area has: Continuous Slow Oozing, Sudden Increased Bleeding, Increased Pain/ Swelling, Increased Redness, Foul Smelling Discharge, Swelling at the incision site Call your doctor if you observe: Fever of 101 or Higher, Shortness of breath, Fainting spells, Chest pain, Increased palpitations (irregular heartbeat) Remove Dressing in (days):: 1 Cleanse incision/area with: Soap & Water Home Medications: Medications to take at Discharge allopurinol 100 mg tablet 100 mg PO DAILY 04/01/20 cholecalciferol (vitamin D3) 125 mcg (5,000 unit) capsule 125 mcg PO DAILY 04/01/20 lisinopril 10 mg tablet 10 mg PO DAILY 04/01/20 oxycodone-acetaminophen 5 mg-325 mg tablet 1 tab PO Q6H PRN 04/01/20 pantoprazole 20 mg tablet,delayed release 20 mg PO DAILY 04/01/20 simvastatin 40 mg tablet 40 mg PO QHS 04/01/20 aspirin 81 mg tablet,delayed release 81 mg PO DAILY 04/19/20 Clopidogrel Bisulfate [Clopidogrel] 75 mg PO DAILY 04/27/20 Clopidogrel Bisulfate [Plavix] 75 mg PO DAILY tablet 04/27/20 Lisinopril [Zestril] 10 mg PO DAILY tablet 04/27/20 Metoprolol Tartrate [Lopressor (beta kati)] 12.5 mg PO BID #60 tab 04/27/20 Nitroglycerin (INPATIENT USE) [Nitrostat] 0.4 mg SUBLINGUAL Q5M PRN #90 tab.subl 04/27/20 Following Prescriptions Were Given to Patient: Metoprolol Tartrate [Lopressor (beta kati)] 12.5 mg PO BID #60 tab Transmission Status: Pending to [id number] Nitroglycerin (INPATIENT USE) [Nitrostat] 0.4 mg SUBLINGUAL Q5M PRN #90 tab.subl PRN Reason: Cardiac/Chest Pain Transmission Status: Pending to [id number] Other Amb Orders: Phase II, Outpatient Cardiac Rehab Location: None Selected [facility] [Primary Care Provider] - Please Follow Up With: Niall Valadez MD When: To be arranged Disposition: Home Minutes spent on discharge:: 45 Patient Condition:: Stable Medical Necessity - Tobacco Use Smoking Status: Former smoker Tobacco Use: Chew Meaningful Use Info Meaningful Use Diagnoses (Choose all that apply): None applicable
[2020-04-27] MEDS: 0.9% Saline Lock 10 ML Syringe IV (09:37)
== END 2020-04-27 08:51 | disposition home or self-care (01) ==
LOC: CLSP 07:32 → PCU 04-27 10:17
PROVIDERS: Internal Medicine Interventional Cardiology; Referring Provider Internal Medicine Cardiovascular Disease; Visit Provider Internal Medicine Cardiovascular Disease
DX: I25.10 Atherosclerotic heart disease of native coronary artery without angina pectoris (principal); I47.1 Supraventricular tachycardia; I10 Essential (primary) hypertension; E66.9 Obesity, unspecified; I45.10 Unspecified right bundle-branch block; C85.10 Unspecified B-cell lymphoma, unspecified site; E78.00 Pure hypercholesterolemia, unspecified; Z85.46 Personal history of malignant neoplasm of prostate; Z95.5 Presence of coronary angioplasty implant and graft; Z79.82 Long term (current) use of aspirin; Z79.899 Other long term (current) drug therapy; Z87.891 Personal history of nicotine dependence; R06.02 Shortness of breath
CPT/HCPCS: 36415; 71046; 80048; 80053; 85025; 85027; 85610; 85730; 92920; 92928; 93005; 93458; 99152; 99153; J7030; J7040; Q9967; A4216; C1725; C1769; C1874; C1887; C1894; C9600

== ENCOUNTER 2020-05-11 09:49 | Day surgery (SDC) | payer MEDICARE, SELFPAY ==
[2020-04-25 07:46] VITALS: BMI 33.4
[2020-05-09 12:37] LABS: Hematocrit 34.7 % (40-54); Hemoglobin 11.7 g/dL (13.0-16.5); Mean Corp Hgb Conc 33.7 g/dL (32-36); Mean Corpuscular Hgb 31.7 pg (27.0-32.0); Mean Platelet Vol. 9.8 fl (6.2-12.0); Platelet Count 215 K/mm3 (150-450); RBC Distribution Width SD 43.2 fl (35.1-43.9); Red Blood Count 3.69 M/mm3 (4.6-6.2); White Blood Count 10.7 K/mm3 (4.4-11.0)
[2020-05-09 13:01] LABS: Anion Gap 7 (5-15); BUN 15 mg/dL (7-18); Chloride 104 mmol/L (98-107); Creatinine, Serum 1.07 mg/dL (0.70-1.30); EST Glomerular Filtration Rate 72 mL/min (>60); Est Glom Filt Rate - Afr Amer 87 mL/min (>60); Glucose 90 mg/dL (74-106); Potassium 4.5 mmol/L (3.5-5.1); Sodium Level 136 mmol/L (136-145)
[2020-05-10 08:51] VITALS: BMI 33.4
--- NOTE | 2020-05-10 09:22 | PCM.HP.BLA ---
<BrunoJose GROUND CONTROL APPROACH TECHNICIAN - Last Filed: 05/10/20 09:22> History and Physical Date of Admission: 05/11/20 This is a 75-year-old white male who presents to the [facility] today for a staged PCI. He has a history of PSVT noted on recent transthoracic echocardiogram performed at the [facility] in preparation for upcoming chemotherapy for a diffuse large B-cell lymphoma. He states he has been evaluated by cardiology in the past including remote evaluation by Dr. Osvaldo Cordova which included an exercise tolerance test at [facility] in [place], [place] as well as since that time evaluation through the [facility] with an exercise tolerance test. He notes that these tests were being performed based upon a history of syncope. 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 To the best of his knowledge his test revealed no findings and he did not require any additional medical therapy or diagnostic studies. Patient underwent stress test on 04/12/2020 that was positive for taylor-infarct related myocardial ischemia. He underwent heart catheterization 04/26/2020 that showed multivessel coronary artery disease. He underwent drug-eluting stent placement to 80% stenosis in the mid LAD. He underwent PTCA of proximal RCA 85% stenosis due to tortuosity and diffuse atherosclerosis in which a stent could not be placed. He also required sedation to assist with right radial artery spasm. It was recommended to undergo stage elective PCI of proximal mid RCA using femoral approach. He presents today for such procedure. He denies chest, arm, jaw, or neck discomfort. His exercise tolerance is stable. He denies symptoms of lightheadedness, dizziness, near syncope, or syncopal episodes. He denies edema or claudication issues. He denies orthopnea, PND, fever, chills, blood in urine, blood in stool, or myalgia. He acknowledges ongoing fatigue. He states that he does have occasional sensation of palpitations. He does not recall any palpitations during his recent transthoracic echocardiogram when he had his report of PSVT. He believes his breathing is somewhat short of breath because of his lymphoma which is primarily involving his lymph nodes in his neck. He has not had orthopnea or PND or worsening peripheral pitting edema. He states he has not had any recurrent syncopal spells. Intake Vital Signs: See EMR Intake Visit Reasons: Staged PCI Filter Press Tender Required: No Accompanied by: Self Is patient in pain?: No Allergies No Known Allergies Allergy (Unverified 04/04/20 10:36) Medications See EMR [facility] Medical History Pure hypercholesterolemia (Chronic) Essential hypertension (Chronic) Large B-cell lymphoma (Chronic) Left renal mass (Chronic) Tachycardia (Acute) Follicular lymphoma (Chronic) History of prostate cancer (Acute) Surgical History History of bone marrow biopsy (Resolved) History of cataract surgery (Resolved) History of prostatectomy (Resolved) lymph nodes removed (Resolved) Social History (Updated 04/04/20 @ 11:[address] Niall Valadez MD) Smokeless tobacco user: chewing tobacco alcohol intake: current details: rare substance use type: does not use caffeine: Yes Type: coffee Number of servings: 3 ROS Const Const: Positive for fatigue (HX lymphona); negative for weakness, frequent falls, excessive sweating, weight gain or weight loss Eyes Eyes: Negative for transient loss of vision, blurry vision or change in vision ENT ENT: Negative for dizziness or balance problems Cardio Chest Pain: No Palpitations: No Edema: None Muscle aches with walking: None Resp Respiratory: Positive for SOB with activity (neck swollen at this time); negative for SOB at rest GI GI: Negative vomiting or vomiting blood/hematemesis : Negative for hematuria Musc Musc: Negative for muscle aches/ myalgia, muscle weakness, joint pain or balance problems Skin Skin: Negative non-healing lesions or rash Neuro Neuro: Positive for syncope (x4-5yrs ago,nothing recent); negative for dizziness, lightheadedness, orthostatic symptoms, frequent falls, weakness or blurry vision Aaron Hematologic/Lymphatic: Negative for easy bleeding Endo Endo: Positive for fatigue (HX lymphona); negative for excessive sweating Psych Psych: Negative for anxiety or depression Allergy Allergy/Immunology: Negative for hives, Negative for rash Cardiology Exam Const Appearance: cooperative, healthy appearing, comfortable, no acute distress, well developed and well groomed Nutritional Appearance: obese Orientation: alert, awake and oriented x3 Head Head: normal to inspection, normocephalic and atraumatic Ears: hearing grossly normal bilaterally Nose: external nose normal Face and Sinus: face symmetric Eyes Eyelids: eyelids normal Conjunctivae: conjunctivae normal Pupils: PERRL EOM: EOM intact bilaterally Neck Neck: normal visual inspection and full ROM Carotids: normal carotid upstroke Chest Chest inspection: normal inspection of the chest, symmetric chest movement and normal respiratory effort Auscultation: Bilateral: Clear to Auscultation Cardio Palpation: normal PMI Rate: regular rate Rhythm: regular rhythm Heart sounds: S1 normal and S2 normal GI GI: normal to inspection, soft, bowel sounds present and obese Neuro General: alert, awake, oriented x3 and moves all extremities Skin Skin: no rashes or lesions noted Extremities Pulses: Normal: Right Radial Pulse, Left Radial Pulse Lower Extremity Edema: None: Bilateral Psych Psychological: normal affect Assessment & Plan 1. Paroxysmal supraventricular tachycardia I47.1 Plan Patient proceeded with 48-hour Holter monitor with results listed below after last office visit. He will continue current beta-kati. 2. Syncope, unspecified syncope type R55 Plan He has a remote history of syncope. He states he is undergone cardiovascular evaluation for this in the past with no definitive diagnosis. An attempt will be made to retrieve copies of his previous cardiovascular studies. 3. Pure hypercholesterolemia E78.00 Plan Is increase his cardiovascular risks. He is on medical management. 4. Essential hypertension I10 Plan He has a history of hypertension. He will continue his medical therapy at this time. 5. Precordial pain R07.2 Plan As noted above, he proceed with stress test as consider be abnormal. He proceeded with stenting on 04/26/2020 to mid LAD and PTCA to RCA. He presents today for staged PCI to RCA via femoral approach 6. Large B-cell lymphoma C85.10 Plan He has a history of large B-cell lymphoma. He will continue under the care of [facility] oncology. Heart catheterization from 04/26/2020: CONCLUSIONS Normal Left Ventricular End Diastolic Pressure Segmented LV systolic dysfunction- Mild LVEF: by LV gram 50 % Eek Multivessel CAD RECOMMENDATIONS Risk factor modification Medical therapy Referred for immediate PCI CORONARY ANGIOGRAPHY DOMINANCE: Right Dominant LEFT HEART ASSESSMENT Left Ventricular Ejection Fraction: by LV Gram 50 % Anterior Hypokinesis Normal Left Ventricular End Diastolic Pressure LVEDP: 2 mmHg LEFT MAIN: Distal: 25 % Stenosis LEFT ANTERIOR DESCENDING ARTERY: PROX LAD: Mild calcification, 90 % Stenosis DIAGONAL 1: Mid - pre bifurcation: hazy: 25 - 50 % Stenosis CIRCUMFLEX ARTERY: OSTIAL CIRC: 50 % Stenosis MID CIRC: Mild luminal irregularities RIGHT CORONARY ARTERY: Mild calcification Mild luminal irregularities MID RCA: diffuse: eccentric: hazy: 75 % Stenosis DISTAL RCA: diffuse: eccentric: 25 - 50 % Stenosis AORTIC ROOT: Angiographically normal COMPLICATIONS No Complications Cardiac intervention from 04/26/2020: Procedure performed; 1. Successful PCI of 80% stenosis mid LAD, with predilatation and placement of a drug-eluting stent 2.5 x 26 mm resolute/TORI. Post stent placement 0% stenosis. Preop procedure VIVIANA III flow and postprocedure VIVIANA-3 flow. 2. Postdilatation using 2.75 x 20 mm NC balloon up to 20 MAC and achievement of excellent result. 3. Successful PTCA of proximal RCA diffuse 80% stenosis, post PTCA is around 30% stenosis VIVIANA III flow in the RCA prior to PTCA and VIVIANA-3 flow post PTCA with no dissection or flow limitation. 4. Unable to place the stent in the RCA due to tortuosity and diffuse atherosclerosis. 5. Use of general anesthesia for removal of the guide catheter 6 Belgian AL-1 due to severe spasm in the radial artery as well as kinking of the catheter Inside the 6 Belgian sheath. 6. TR band applied to right radial artery with no complication. Preprocedure details; 75-year-old patient with history of type B cell lymphoma currently on chemotherapy, patient underwent cardiac catheterization by Patient has evaluation in the office with the nuclear stress test which showed ischemia in the left anterior descending artery distribution. Based on his clinical presentation and having symptoms of shortness of breath on exertion he underwent cardiac catheterization which I reviewed and discussed in detail with the patient and Dr. Valadez, noted patient had diffuse atherosclerosis involving a large dominant RCA proximal to mid At least around 80% stenosis distal RCA prior to the bifurcation had around 40% stenosis eccentric atherosclerosis. He had left main which is normal with tapering of the left main, with nonobstructive atherosclerosis of around 30% of the distal left main, mid LAD at significant atherosclerosis involving the sidebranch small vessel. Ostial left circumflex had around 60 to 70%. Please refer to detailed cardiac authorization report by patient has borderline LV dysfunction EF probably around 50%. Consent risk benefits of the procedure explained in detail to the patient elected to proceed informed consent obtained. Sedation patient sedated with intravenous Versed and intravenous fentanyl. Interventional plan and equipment used; We proceed with the 6 Belgian JL 3.5 guide catheter engaged the left main coronary artery without difficulty, use run-through wire across the lesion in the LAD Then , proceed with predilatation using 2 x 15 mm balloon to the mid LAD followed by 2.5 x 26 mm drug-eluting stent/resolute placed in the mid LAD This is followed by 2.75 x 20 mm NC balloon, patient was given heparin a total of 7000 units of heparin initially ACT was 2.41 he was given additional 2000 units of heparin. Patient has been already on aspirin and Plavix this morning. Angiographic view of the LAD showed VIVIANA-3 flow pre and post procedure with reduction of stenosis from 80% mid LAD to 0% and excellent result. Then we proceed with the plan of, PCI of the large dominant RCA. We used JR4 guide catheter, run-through wire, BMW, choice PT extra-support wire, we engaged the RCA ostium and then we proceed with the wire across the lesion and then we predilated the lesion. The RCA is a large dominant with the large bend proximally in the RCA That make it difficult to place a stent, we use different wires, tan wire with the choice PT extra-support still unable to place a stent in the proximal to mid RCA. Then we change the plan of a guide catheter using AL-1 guide, noted kinking of the guide catheter at the site of the right radial artery sheath with difficulty of passing the wire. At this point with general incision he was given propofol to relax artery and we were able to remove the sheath as well at the AL-1 guide catheter as 1 part. With no complication. TR band applied to right radial artery to maintain hemostasis. Patient was given further 300 mg of Plavix in the [facility]. Recommendation and plan; Medical treatment with the dual antiplatelet therapy aspirin and Plavix for nearly 1 year if no complication and low-dose aspirin indefinitely. We will plan for elective PCI of the proximal to mid RCA using femoral approach due to the complexity of the lesion and difficulty of the guide catheter selection. 48-hour Holter monitor from 04/12/2020: Sinus rhythm with bundle branch block. Longest R to R interval 1.8 seconds. Minimum heart 41 beats minute. Average heart rate 73 beats minute. Maximum heart 129 beats minute. Ventricular ectopy 0.2%. Supraventricular ectopy 0.8%. No atrial fibrillation noted. No symptoms documented in 48-hour Holter diary. Echocardiogram from 03/31/2020: Conclusions: ?Technically difficult exam due to body habitus. ?Exam medication: Baseline and serial evaluation and patient undergoing therapy for cardiotoxic agents ?Electrical is normal in size. Left ventricular systolic function is normal. EF equal 67? percent (2D for?CH.) Grade 1 left ventricular diastolic dysfunction. ?The right ventricle is normal in size. Right ventricular systolic function is normal. ?There was no significant evidence of valvular stenosis or insufficiency on the study. ?Patient had 2 bouts of supraventricular tachycardia (heart rate 153 bpm) during exam. Suggest consideration of referral to cardiology. ?Patient has not had a prior CC echocardiographic exam for comparison. Procedure Criteria Procedure Type: Elective COVID Risk Discussion: The surgeon/proceduralist and patient have discussed in detail the risk of exposure to and/or potential harm posed by the COVID-19 virus with having a surgery/procedure at this time versus the risk of delaying the surgery/procedure. It is not possible to know either the risk of delaying the surgery or procedure or chance of getting an infection with perfect accuracy, but a joint decision was made between the patient and the surgeon/proceduralist to proceed at this time with the scheduled surgery/procedure as indicated on the consent form. <Niall Valadez - Last Filed: 05/11/20 09:50> History and Physical I have re-examined the patient. There are no clinical changes since date of exam.
--- NOTE | 2020-05-11 12:39 | CL.PCI_ITS ---
PCI Cardiac Cath Report PCI Report: Procedure performed; 1. Successful percutaneous core intervention of a complex heavily calcified proximal to mid RCA With placement of a drug-eluting stent 3 x 26 mm resolute 2. Successful postdilatation using 3.5 x 20 mm [employer] NC Emerge balloon 3. Pre-PCI proximal to mid RCA heavily calcified with 80% stenosis, with VIVIANA-3 flow 4. Post PCI proximal to mid RCA with placement of a drug-eluting stent reduction of stenosis to 0% and achievement of VIVIANA-3 flow 5. Successful placement of a Perclose to close arteriotomy site with no complication in the [facility] 6. Moderate sedation using 2 mg of Versed and 50 mcg of fentanyl. Preprocedure diagnosis; This patient is 72-year-old is no history of CAD, with the positive stress test. He had attempted PCI of the RCA from the right radial artery approach which was not successful therefore is scheduled for PCI of RCA from the right common femoral artery approach as an elective procedure. Patient had a recent PCI and stent of the mid LAD using drug-eluting stent He was on dual antiplatelet therapy with Plavix and aspirin Patient has been stable clinically has no active chest pain Interventional equipment: 1. We used AL-1 guide catheter 6 Monegasque 2. We used 2 wires Terumo 0.014 run-through extra floppy 180 cm straight wire Medtronic resolute drug-eluting stent 3 x 26 mm [employer] NC Emerge balloon 3 x 20 mm 0.014 Choice PT extra-support wire 182 cm. Postdilatation using 3.5 x 20 mm NC balloon. Procedure in detail; Patient brought to the [facility] in fasting state Right groin prepped and draped in the usual sterile fashion Under fluoroscopic guidance 6 Monegasque sheath placed in the right common femoral artery Through proceed with the guide catheter AL-1 guide catheter and the initial guide was not supportive which is a JR4 6 Monegasque Then we proceed with the use of 2 wires run-through wire and choice PT extra- support across the lesion and placing the RPDA Then we initially proceed with 2.5 x 20 mm regular balloon followed by 3 x 20 mm NC balloon and were able successfully to place 3 x 26 mm drug-eluting stent resolute And we postdilated using 3.5 x 20 mm NC balloon Anticoagulation using the [facility] with heparin and will give a total of 9000 of heparin ACT is still around 189 and will give 300 Plavix in addition to the aspirin Following this selective right common femoral artery angiography obtain and a Perclose used to close arteriotomy site with no complication in the [facility]. Patient had no symptoms of chest pain and he remained stable hemodynamically in the [facility] Patient will be admitted to the progressive care unit and he will be followed by his primary synthetic soil blocks pulper Dr. Niall Valadez. Day Baron MD,[facility] engine specialist
--- NOTE | 2020-05-11 13:13 | CRPHASE1_ITS ---
Patient Communication Former Patient:: Phase I PHII Cardiac Rehab Discussed with Patient:: Yes Guide to Cardiac Rehab Given to Patient:: Yes - Staged procedure, booklet given to Pt. following 1st PCI Cardiac Rehab Facility Choice List Given to Patient:: Yes Choice Program [facility] CR PHII:: Communication Given to CR Recruitment Coordinator:: Day Baron Refer Phase II Cardiac Rehab:: Yes Sessions:: 36 sessions - 3 days/wk, 12 weeks Cardiac Rehabilitation Info Cardiac Rehabilitation Program Information: Cardiac Rehabilitation is important for patients like you who are recovering from a heart problem. Cardiac rehabilitation programs are recognized as integral to the continued care of the patient with coronary heart disease. The cardiac rehabilitation program is designed to optimize a patient's physical, psychological, and social functioning. Health home health care worker work in cardiac rehabilitation programs and assist you with getting the treatments you need to get stronger and healthier - like exercise, healthy eating habits, and medications. Cardiac rehabilitation has been show to help people with heart problems live longer and have better life enjoyment than people who do not go to cardiac rehabilitation. Please contact the Cardiac Rehabilitation Program at [facility] at in two weeks if you have not heard from them.
--- NOTE | 2020-05-11 13:15 | CRPH1.INSTRU ---
General Education CAD and cardiac anatomy and function:: Patient communicates acknowledgment, Family communicates acknowledgment, Needs reinforcement Explanation of diagnoses and procedures:: Patient communicates acknowledgment, Family communicates acknowledgment, Needs reinforcement Sign/Symptoms of GA:: Patient communicates acknowledgment, Family communicates acknowledgment, Needs reinforcement Antiplatelet therapy: Patient communicates acknowledgment, Family communicates acknowledgment, Needs reinforcement Proper use of NTG-SL: Patient communicates acknowledgment, Family communicates acknowledgment, Needs reinforcement Emergency procedures and activation of EMS: Patient communicates acknowledgment, Family communicates acknowledgment, Needs reinforcement Compliance of all prescribed medications: Patient communicates acknowledgment, Family communicates acknowledgment, Needs reinforcement Smoking Recommendations Include:: Previous smoker; encourage continued cessation Nicotine/Smoking Response Code:: Patient communicates acknowledgment, Family communicates acknowledgment, Needs reinforcement Dyslipidemia Patient Dyslipidemia Risk Factors Are:: Total Cholesterol, Triglycerides, HDL, LDL Recommendations Include:: Lipid profile not available, Reviewed NCEP/ATP guidelines, Therapeutic Lifestyle Change dietary guidelines Dyslipidemia Response Code:: Patient communicates acknowledgment, Family communicates acknowledgment, Needs reinforcement Overweight/Obesity Patient Overweight/Obesity Risk Factors Are:: Obesity - > or = 30 Recommendations Include:: Weight loss of 5-10%, Reduced calorie diet, Exercise 5-7 times/week Overweight/Obesity:: Patient communicates acknowledgment, Family communicates acknowledgment, Needs reinforcement Hypertension Recommendations Include:: Maintain BP <130/85, DASH dietary guidelines, Decrease/maintain normal body weight, Moderation of ETOH Hypertension:: Patient communicates acknowledgment, Family communicates acknowledgment, Needs reinforcement Sedentary Patient Sedentary Risk Factors Are:: Lack of regular exercise Recommendations Include:: Aerobic exercise 5-7 times/week for 20-30 minutes continuously, Benefits of regular exercise, Discussed home walking program, Monitored Outpatient Cardiac Rehab Sedentary Response Code:: Patient communicates acknowledgment, Family communicates acknowledgment, Needs reinforcement
[2020-05-11 17:14] VITALS: BP 129/69; PULSE 62; PULSE 65; RESP 16; TEMP 36.6; O2SAT 95
[2020-05-11 19:05] VITALS: PULSE 66
[2020-05-11 21:29] VITALS: BP 150/80; PULSE 60; RESP 16; TEMP 36.9; O2SAT 96
[2020-05-11 21:47] VITALS: BP 150/80; PULSE 71
[2020-05-11] MEDS: Metoprolol Tartrate 25 MG Tablet 12.5 MG PO (21:47)
[2020-05-11] MEDS: Atorvastatin Calcium 40 MG Tablet PO (21:48)
[2020-05-11 22:00] VITALS: PULSE 68; O2SAT 96
[2020-05-12 02:51] VITALS: PULSE 73
[2020-05-12 04:00] VITALS: O2SAT 95
[2020-05-12 04:20] VITALS: BP 147/90; PULSE 62; RESP 16; TEMP 36.6; O2SAT 95
[2020-05-12 06:21] LABS: Hematocrit 35.1 % (40-54); Hemoglobin 11.7 g/dL (13.0-16.5); Mean Corp Hgb Conc 33.3 g/dL (32-36); Mean Corpuscular Hgb 31.7 pg (27.0-32.0); Mean Corpuscular Volume 95.1 fL (80-94); Mean Platelet Vol. 9.4 fl (6.2-12.0); Platelet Count 178 K/mm3 (150-450); RBC Distribution Width CV 13.6 % (11.6-14.6); RBC Distribution Width SD 44.9 fl (35.1-43.9); Red Blood Count 3.69 M/mm3 (4.6-6.2); White Blood Count 11.7 K/mm3 (4.4-11.0)
[2020-05-12 06:49] LABS: AST(SGOT) 18 U/L (15-37); Alanine Aminotransfer ALT/SGPT 27 U/L (16-61); Albumin, Serum 3.3 g/dL (3.2-5.0); Alkaline Phosphatase 77 U/L (45-117); Anion Gap 5 (5-15); BUN 16 mg/dL (7-18); BUN/Creat Ratio 14.2 RATIO (10-20); Calcium,Total 9.2 mg/dL (8.5-10.1); Chloride 105 mmol/L (98-107); Creatinine, Serum 1.13 mg/dL (0.70-1.30); EST Glomerular Filtration Rate 68 mL/min (>60); Est Glom Filt Rate - Afr Amer 82 mL/min (>60); Estimated Creatinine Clearance 60.12 ml/min; Globulin 3.3 g/dL (2.2-4.2); Glucose 99 mg/dL (74-106); Potassium 4.5 mmol/L (3.5-5.1); Protein, Total 6.6 g/dL (6.4-8.2); Sodium Level 136 mmol/L (136-145)
[2020-05-12 07:08] VITALS: PULSE 52
--- NOTE | 2020-05-12 08:57 | PCM.DC ---
- Discharge Diagnoses Current Active Problems: CAD status post RCA PTCA/TORI Reason(s) for Visit for Discharge Instructions: Staged cardiac catheterization/cardiac intervention/PCI to the RCA You will use the following diet at home:: Cardiac Your food should be the consistency of: Regular Discharge Activity: May Not Drive - May not drive: X48 hours, May Shower - May shower: Today, May Take a Tub Bath - May not take a tub bath for 7 days Weight Bearing Status: - - Avoid heavy exertional activity x1 week Call your doctor if your incision/area has: Continuous Slow Oozing, Increased Pain/ Swelling, Increased Redness, Foul Smelling Discharge, Swelling at the incision site Call your doctor if you observe: Fever of 101 or Higher, Shortness of breath, Fainting spells, Swelling in the ankles, Chest pain, Prolonged hiccoughing, Calf discomfort, Uncontrolled pain Remove Dressing in (days):: 1 Cleanse incision/area with: Soap & Water Allergies/Adverse Reactions: Allergies No Known Allergies Allergy (Unverified 05/10/20 09:11) Medications to take at Discharge allopurinol 100 mg tablet 100 mg PO DAILY 04/01/20 cholecalciferol (vitamin D3) 125 mcg (5,000 unit) capsule 125 mcg PO DAILY 04/01/20 oxycodone-acetaminophen 5 mg-325 mg tablet 1 tab PO Q6H PRN 04/01/20 pantoprazole 20 mg tablet,delayed release 20 mg PO DAILY 04/01/20 simvastatin 40 mg tablet 40 mg PO QHS 04/01/20 aspirin 81 mg tablet,delayed release 81 mg PO DAILY 04/19/20 Clopidogrel Bisulfate [Plavix] 75 mg PO DAILY tab 04/27/20 Lisinopril [Zestril] 10 mg PO DAILY tab 04/27/20 Metoprolol Tartrate [Lopressor (beta kati)] 12.5 mg PO BID #60 tab 04/27/20 Nitroglycerin (INPATIENT USE) [Nitrostat] 0.4 mg SUBLINGUAL Q5M PRN #90 tab.subl 04/27/20 Allopurinol [Zyloprim] 100 mg PO DAILYCM tablet 05/12/20 Aspirin E.C. [Ecotrin] 81 mg PO DAILY@0800 tablet 05/12/20 Atorvastatin Calcium [Lipitor] 40 mg PO QHS tablet 05/12/20 Clopidogrel Bisulfate [Plavix] 75 mg PO DAILY tablet 05/12/20 Lisinopril [Zestril] 10 mg PO DAILY tablet 05/12/20 Metoprolol Tartrate [Lopressor (beta kati)] 12.5 mg PO BID tablet 05/12/20 Primary Care Physician: [facility] [Primary Care Provider] - Test Results: Test results from this visit will be discussed in further detail at your follow-up appointment, if applicable. Please Follow Up With: Niall Valadez MD When: 07/06/2020 @ 10:30 AM (as scheduled)
--- NOTE | 2020-05-12 09:01 | DS.PCM_ITS ---
Discharge Date and Diagnosis Date of Admission: 05/11/20 Date of Discharge: 05/12/20 - Primary Discharge Diagnosis Acute Problems: CAD status post RCA PCI/TORI - Secondary Discharge Diagnosis Chronic Problems: Chronic Problems (Last Reviewed 04/04/20 @ 10:41 by Rosa Hernandez) Presence of stent in coronary artery (Chronic ~05/11/20) Successful percutaneous core intervention of a complex heavily calcified proximal to mid RCA with placement of a drug-eluting stent 3 x 26 mm resolute per cath 05/11/20; Successful PCI of 80% stenosis mid LAD, with predilatation and placement of a drug-eluting stent 2.5 x 26 mm resolute/TORI; Successful PTCA of proximal RCA diffuse 80% stenosis per cath 04/26/20 Atherosclerotic heart disease of [place] coronary artery without angina pectoris (Chronic) Pure hypercholesterolemia (Chronic) Essential hypertension (Chronic) Large B-cell lymphoma (Chronic) Left renal mass (Chronic) Follicular lymphoma (Chronic) Hospital Course and Treatment Procedures: - - Cardiac intervention Summary of Care Provided: The patient is a 75 year old white male with a history of underlying CAD status post recent LAD PCI who presented for a staged cardiac intervention with RCA PCI. This was performed on 05-11-[address] Baron without adverse events. The patient was monitored overnight. He appeared to be symptomatically and hemodynamically stable. He remained in sinus rhythm. His post procedure ECG demonstrated no acute changes. On this day it was felt the patient could be released home for continued outpatient cardiovascular follow-up. [] Subjective: Patient is awake and alert and without any obvious adverse concerns. - Physical Exam Vitals/I&O's: Vital Signs Temp Pulse Resp BP Pulse Ox 97.9 F 52 L 16 147/90 H 95 05/12/20 04:20 05/12/20 07:08 05/12/20 04:20 05/12/20 04:20 05/12/20 04:20 Oxygen Delivery Method Room Air Weight: 226 lb 13.69 oz Body Mass Index (BMI) 33.4 General: Alert, Oriented x3, Cooperative, No apparent distress HEENT: Atraumatic, PERRLA, EOMI, Normocephalic Neck: Supple, No JVD Lungs: Clear to auscultation Cardiovascular: Regular rate, Normal S1, Normal S2 Abdomen: Bowel Sounds Present, Soft Extremities: No edema Neurological: Neuro grossly intact Psych/Mental Status: Normal Affect Comment: Right femoral artery area: Pulse 2+/4+: No obvious bruits: No obvious hemat Laboratory Results 05/12/20 06:00: WBC 11.7 H, RBC 3.69 L, Hgb 11.7 L, Hct 35.1 L, MCV 95.1 H, MCH 31.7, MCHC 33.3, RDW Std Deviation 44.9 H, RDW Coeff of Suzette 13.6, Plt Count 178, MPV 9.4 05/12/20 06:00: Sodium 136, Potassium 4.5, Chloride 105, Carbon Dioxide 26.0, Anion Gap 5, BUN 16, Creatinine 1.13, Estim Creat Clear Calc 60.12, Est GFR (MDRD) Af Amer 82, Est GFR (MDRD) Non-Af 68, BUN/Creatinine Ratio 14.2, Glucose 99, Calcium 9.2, Total Bilirubin 0.30, AST 18, ALT 27, Alkaline Phosphatase 77, Total Protein 6.6, Albumin 3.3, Globulin 3.3, Albumin/Globulin Ratio 1.0 PCI Cardiac Cath Report PCI Report: Procedure performed; 1. Successful percutaneous core intervention of a complex heavily calcified proximal to mid RCA With placement of a drug-eluting stent 3 x 26 mm resolute 2. Successful postdilatation using 3.5 x 20 mm [email or web address] [place] Emerge balloon 3. Pre-PCI proximal to mid RCA heavily calcified with 80% stenosis, with VIVIANA-3 flow 4. Post PCI proximal to mid RCA with placement of a drug-eluting stent reduction of stenosis to 0% and achievement of VIVIANA-3 flow 5. Successful placement of a Perclose to close arteriotomy site with no complication in the Manager Of [employer] 6. Moderate sedation using 2 mg of Versed and 50 mcg of fentanyl. Preprocedure diagnosis; This patient is 72-year-old is no history of CAD, with the positive stress test. He had attempted PCI of the RCA from the right radial artery approach which was not successful therefore is scheduled for PCI of RCA from the right common femoral artery approach as an elective procedure. Patient had a recent PCI and stent of the mid LAD using drug-eluting stent He was on dual antiplatelet therapy with Plavix and aspirin Patient has been stable clinically has no active chest pain Interventional equipment: 1. We used AL-1 guide catheter 6 [place] 2. We used 2 wires Terumo 0.014 run-through extra floppy 180 cm straight wire Medtronic resolute drug-eluting stent 3 x 26 mm [place] [employer] NC Emerge balloon 3 x 20 mm 0.014 Choice PT extra-support wire 182 cm. Postdilatation using 3.5 x 20 mm NC balloon. Procedure in detail; Patient brought to the [employer] Of [employer] in fasting state Right groin prepped and draped in the usual sterile fashion Under fluoroscopic guidance 6 [place] sheath placed in the right common femoral artery Through proceed with the guide catheter AL-1 guide catheter and the initial guide was not supportive which is a JR4 6 [place] Then we proceed with the use of 2 wires run-through wire and choice PT extra- support across the lesion and placing the RPDA Then we initially proceed with 2.5 x 20 mm regular balloon followed by 3 x 20 mm NC balloon and were able successfully to place 3 x 26 mm drug-eluting stent resolute And we postdilated using 3.5 x 20 mm NC balloon Anticoagulation using the [employer] Of [employer] with heparin and will give a total of 9000 of heparin ACT is still around 189 and will give 300 Plavix in addition to the aspirin Following this selective right common femoral artery angiography obtain and a Perclose used to close arteriotomy site with no complication in the Manager Of [employer]. Patient had no symptoms of chest pain and he remained stable hemodynamically in the [employer] Of [employer] Patient will be admitted to the progressive care unit and he will be followed by his primary card dealer Dr. Niall Valadez. Day Baron MD,[facility] motion picture camera operator 05/11/20 1304 <Electronically signed by Day Baron MD> Date _ Day Baron MD Current Medications Allopurinol (Allop[facility]ol 100 Mg Tablet) [facility] Aspirin (Aspirin E.C. 81 Mg Tablet) 81 mg PO DAILY@0800 [facility] Atorvastatin Calcium (Atorvastatin Calcium 40 Mg Tablet) 40 mg PO QHS [facility] Last Admin: 05/11/20 21:48 Dose: 40 mg Documented by: Atropine Sulfate (Atropine Sulfate 1 Mg/10 Ml Syringe) 0.5 mg IV UD PRN PRN Reason: HR <50 bpm Clopidogrel Bisulfate (Clopidogrel Bisulfate 75 Mg Tablet) 75 mg PO DAILY [facility] Lisinopril (Lisinopril 10 Mg Tablet) 10 mg PO DAILY [facility] Metoprolol Tartrate (Metoprolol Tartrate 25 Mg Tablet) 12.5 mg PO BID [facility] Last Admin: 05/11/20 21:47 Dose: 12.5 mg Documented by: Sodium Chloride (0.9% Normal Saline 500 Ml Iv.Soln.) 500 ml IV BOLUS PRN PRN Reason: VASO-VAGAL PROTOCOL Sodium Chloride (0.9% Saline Lock 10 Ml Syringe) 10 - 40 ml IV UD PRN PRN Reason: SALINE FLUSH Discharge Diet: Low fat/ Low Cholesterol Discharge Activity: May Not Drive - May not drive: X48 hours, May Shower - May shower: Today, May Take a Tub Bath - May not take a tub bath for 7 days Weight Bearing Status: - - Avoid heavy exertional activity x1 week Call your doctor if your incision/area has: Continuous Slow Oozing, Increased Pain/ Swelling, Increased Redness, Foul Smelling Discharge, Swelling at the incision site Call your doctor if you observe: Fever of 101 or Higher, Shortness of breath, Fainting spells, Swelling in the ankles, Chest pain, Prolonged hiccoughing, Calf discomfort, Uncontrolled pain Remove Dressing in (days):: 1 Cleanse incision/area with: Soap & Water Home Medications: Medications to take at Discharge allopurinol 100 mg tablet 100 mg PO DAILY 04/01/20 cholecalciferol (vitamin D3) 125 mcg (5,000 unit) capsule 125 mcg PO DAILY 04/01/20 oxycodone-acetaminophen 5 mg-325 mg tablet 1 tab PO Q6H PRN 04/01/20 pantoprazole 20 mg tablet,delayed release 20 mg PO DAILY 04/01/20 simvastatin 40 mg tablet 40 mg PO QHS 04/01/20 aspirin 81 mg tablet,delayed release 81 mg PO DAILY 04/19/20 Clopidogrel Bisulfate [Plavix] 75 mg PO DAILY tab 04/27/20 Lisinopril [Zestril] 10 mg PO DAILY tab 04/27/20 Metoprolol Tartrate [Lopressor (beta kati)] 12.5 mg PO BID #60 tab 04/27/20 Nitroglycerin (INPATIENT USE) [Nitrostat] 0.4 mg SUBLINGUAL Q5M PRN #90 tab.subl 04/27/20 Allopurinol [Zyloprim] 100 mg PO DAILYCM tablet 05/12/20 Aspirin E.C. [Ecotrin] 81 mg PO DAILY@0800 tablet 05/12/20 Atorvastatin Calcium [Lipitor] 40 mg PO QHS tablet 05/12/20 Clopidogrel Bisulfate [Plavix] 75 mg PO DAILY tablet 05/12/20 Lisinopril [Zestril] 10 mg PO DAILY tablet 05/12/20 Metoprolol Tartrate [Lopressor (beta kati)] 12.5 mg PO BID tablet 05/12/20 Primary Care Physician: [facility] [Primary Care Provider] - Please Follow Up With: Niall Valadez MD When: 07/06/2020 @ 10:30 AM (as scheduled) Disposition: Home Minutes spent on discharge:: 45 Patient Condition:: Stable Medical Necessity - Tobacco Use Smoking Status: Former smoker Meaningful Use Info Meaningful Use Diagnoses (Choose all that apply): None applicable
[2020-05-12 09:34] VITALS: BP 124/55; PULSE 63; RESP 16; TEMP 36.7; O2SAT 98
--- NOTE | 2020-05-12 09:35 | NURSING ---
Patient states he wants to take all of his daily meds at home.
--- NOTE | 2020-05-12 10:00 | EKG12_ITS ---
Test Reason : AM EKG Blood Pressure : / mmHG Vent. Rate : 058 BPM Atrial Rate : 058 BPM P-R Int : 178 ms QRS Dur : 162 ms QT Int : 460 ms P-R-T Axes : 028 101 066 degrees QTc Int : 451 ms Sinus bradycardia Right bundle branch block Abnormal ECG When compared with ECG of 26-APR-2020 12:50, RI interval has decreased Confirmed by LILLIE WHITE, BRENNEN ([id number]), staff editor DEN PETERSEN ([id number]) on 05/13/2020 8:17:34 AM Referred By: Day Baron Confirmed By:BRENNEN MOREIRA MD
== END 2020-05-12 09:55 | disposition home or self-care (01) ==
LOC: CLSP 09:49 → PCU 17:04
PROVIDERS: Internal Medicine Cardiovascular Disease; Referring Provider Internal Medicine Interventional Cardiology; Visit Provider Internal Medicine Interventional Cardiology
DX: I25.10 Atherosclerotic heart disease of native coronary artery without angina pectoris (principal); I47.1 Supraventricular tachycardia; I10 Essential (primary) hypertension; E78.00 Pure hypercholesterolemia, unspecified; C85.10 Unspecified B-cell lymphoma, unspecified site; I45.10 Unspecified right bundle-branch block; Z85.46 Personal history of malignant neoplasm of prostate; Z95.5 Presence of coronary angioplasty implant and graft; Z79.82 Long term (current) use of aspirin; Z79.899 Other long term (current) drug therapy; Z87.891 Personal history of nicotine dependence
CPT/HCPCS: 36415; 80048; 80053; 85027; 92928; 93005; 99152; 99153; C1725; J7040; Q9967; C1760; C1769; C1874; C1887; C9600

== ENCOUNTER 2021-07-10 10:18 | Emergency (ER) | payer OTHER, SELFPAY ==
[2021-07-10] VITALS (11 sets, daily range): BP systolic 143–190; BP diastolic 63–106; PULSE 36–42; RESP 14–30; TEMP 36.2; O2SAT 94–99; BMI 33.8
--- NOTE | 2021-07-10 10:29 | RAD_ITS ---
INDICATION: chest pain EXAMINATION/TECHNIQUE: X-RAY - XR Chest 1 View COMPARISON: 04/20/2020 FINDINGS: Poor inspiratory effort is visualized. LINES/DEVICES: Left chest port visualized with catheter tip in the SVC. LUNGS: Peribronchial cuffing bilateral hilar prominence is seen. Prominence of the bronchovascular interstitial lung markings is visualized bilaterally. No evidence of focal lung infiltrate or consolidation. 1 cm nodularity visualized in the right lower lung field with subtle calcifications demonstrates prominence in comparison to the prior study, this could represent a nipple informed consent was recommended. X-ray with nipple marker. MEDIASTINUM AND CARDIOVASCULAR STRUCTURES: Cardiomegaly is visualized demonstrating prominence in comparison to the prior study. BONES AND SOFT TISSUES: Degenerative bone changes. RAD/Chest 1 View (Portable) IMPRESSION: Cardiomegaly and Congestive changes. Electronically Signed: Bronson Dunbar MD at 11:30 EDT ,
--- NOTE | 2021-07-10 10:31 | EDS_ITS ---
HPI History of Present Illness Chief Complaint: Shortness of Breath Informant: patient Narrative Narrative: 76-year-old male presenting to the emergency room with third-degree heart block. Patient has a history of follicular B-cell lymphoma as well as having coronary artery disease having had a heart catheterization in April of last year and receiving stents to the mid LAD in the proximal RCA. He then underwent staged placement of the mid RCA later and had April 2020 rate. Patient notes that in the past month he has been experiencing intermittent dyspnea on exertion fatigue and intermittent chest pressure. He states that last Saturday while trying to go for a walk he had a near syncopal event. Today he followed up with cardiology in the office and EKG revealed third-degree heart block. Patient previously has received his oncologic care at [facility] and would like to be transferred there for further heart care. He is on metoprolol succinate 25 mg daily. He is also on aspirin and Plavix. [facility] Medical History (Updated 07/10/21 @ 11:[address] Missael Galaviz, ) Atherosclerotic heart disease of [place] coronary artery without angina pectoris Essential hypertension Follicular lymphoma History of prostate cancer Large B-cell lymphoma Left renal mass Pure hypercholesterolemia Tachycardia Home Medications pantoprazole 20 mg tablet,delayed release 20 mg PO DAILY 04/01/20 [History Last Taken Unknown] aspirin 81 mg tablet,delayed release 81 mg PO DAILY 04/19/20 [History Last Taken 05/11/20] clopidogrel 75 mg PO DAILY tab 05/12/20 [Rx Last Taken Unknown] lisinopril 10 mg PO DAILY tab 05/12/20 [Rx Last Taken Unknown] metoprolol succinate 25 mg tablet,extended release 24 hr 25 mg PO DAILY #30 tablet 07/06/20 [Rx Last Taken Unknown] cholecalciferol (vitamin D3) 125 mcg (5,000 unit) capsule 125 mcg PO TID cap 09/28/20 [History Last Taken Unknown] nitroglycerin 0.4 mg sublingual tablet 0.4 mg SUBLINGUAL Q5-15M PRN #25 tab 09/28/20 [Rx Last Taken Unknown] atorvastatin 40 mg tablet 40 mg PO QHS 07/10/21 [History Last Taken Unknown] Allergy/AdvReac Type Severity Reaction Status Date / Time No Known Allergies Allergy Verified 07/10/21 10:23 Surgical History (Updated 07/10/21 @ 11:[address] Missael Galaviz DO) History of bone marrow biopsy History of cataract surgery History of prostatectomy lymph nodes removed Presence of coronary angioplasty implant and graft (~05/11/20) Presence of stent in coronary artery (~05/11/20) Social History Smoking Status: Former smoker Smokeless tobacco user: chewing tobacco how long ago did patient quit smoking: Quit smoking 20 years ago. Occasionally uses chewing tobacco alcohol intake: current alcohol intake frequency: a few times a month substance use type: does not use caffeine: Yes Type: coffee Number of servings: 2 ROS ROS ED Constitutional Constitutional ED: Denies chills or weight loss Eyes Eyes: Denies change in vision or diplopia ENT ENT ED: Denies ear pain, rhinorrhea or sore throat Cardiovascular Cardiovascular: Reports chest pain; Denies orthopnea, palpitations or racing heartbeat Respiratory/Chest Respiratory/Chest: Reports dyspnea and dyspnea on exertion; Denies cough or orthopnea Gastrointestinal Gastrointestinal: Denies abdominal pain, diarrhea, nausea or vomiting Genitourinary Genitourinary ED: Denies dysuria, hematuria or urinary frequency Musculoskeletal Musculoskeletal: Denies arthralgias or myalgias Integumentary Denies abscess or rash Neurologic Neurologic: Denies headache(s) or weakness Psychiatric Psychiatric: Denies anxiety, depression, suicidal ideation or suicidal thoughts Endocrine Endocrinology: Denies polydipsia, polyphagia or polyuria Allergic/Immunologic Allergic/Immunologic ED: Denies mouth swelling, tongue swelling or urticaria EXAM Physical Exam Const Vital Signs: 07/10/21 10:19 Temperature 97.1 F L Temperature Source Temporal Pulse Rate 40 L Respiratory Rate 16 Blood Pressure 190/67 H Blood Pressure Mean 108 Pulse Ox 99 Oxygen Delivery Method Room Air Positive well nourished and well developed General Appearance ED: well developed HEENT Reports normocephalic, head/scalp atraumatic, TM's clear and moist mucous membranes Negative for trauma Tympanic Membrane ED: Yes TM's clear Eyes PERRL and EOMs intact bilaterally Neck no lymphadenopathy, supple and no JVD Resp normal respiratory effort and clear to auscultation bilaterally Cardio regular rate and no murmurs Rate: bradycardia GI normal to inspection, nondistended, normoactive bowel sounds and non-tender Palpation: soft Back/Spine no CVA tenderness and normal ROM Extremity normal to inspection General Extremety ED: Negative for edema General Extremity: Negative for edema Neuro oriented x3 and CN's II-XII intact bilaterally Sensorium / Orientation: alert Motor Exam: strength 5/5 throughout Psych mental status grossly normal Mood & Affect: Negative for depressed or tearful Skin no rashes or lesions noted and no wounds MDM MDM MDM Narrative Medical decision making narrative: Basic blood work showed a hemoglobin 13.7 white count of 6.9. Platelets 199. Troponin is normal at 22. Potassium normal 4.3 magnesium 1.9. Interpretation of the chest x-ray is no acute process no cardiomegaly noted. Patient remains hemodynamically stable actually little bit on the hypertensive side. He has remained in third-degree block. I spoke with [facility] as the patient wishes to stay in the [facility] system. He has not required any cardiac pacing. Lab Data Attestation: I reviewed the patient's lab results. Labs: Laboratory Results - last 24 hr 07/10/21 07/10/21 07/10/21 10:55 10:55 10:55 WBC 6.9 RBC 4.02 L Hgb 13.7 Hct 38.7 L MCV 96.3 H MCH 34.1 H MCHC 35.4 RDW Std Deviation 42.5 RDW Coeff of Suzette 12.1 Plt Count 199 MPV 10.1 Immature Gran % (Auto) 0.400 Neut % (Auto) 67.9 Lymph % (Auto) 14.9 L [place] % (Auto) 9.8 Eos % (Auto) 6.4 H Baso % (Auto) 0.6 Absolute Neuts (auto) 4.7 Absolute Lymphs (auto) 1.03 Nucleated RBC % 0 PT Cancelled INR Cancelled APTT Cancelled Sodium 140 Potassium 4.3 Chloride 110 H Carbon Dioxide 24.0 Anion Gap 6 BUN 20 H Creatinine 1.04 Estim Creat Clear Calc 64.34 Est GFR (MDRD) Af Amer 90 Est GFR (MDRD) Non-Af 74 BUN/Creatinine Ratio 19.2 Glucose 90 Calcium 8.8 Magnesium 1.9 Total Bilirubin 0.80 AST 15 ALT 27 Alkaline Phosphatase 67 Troponin I High Sens 22 Total Protein 6.9 Albumin 3.8 Globulin 3.1 Albumin/Globulin Ratio 1.2 Radiography Diagnostic Testing: Clinical Impression(s) from Imaging Studies Chest X-Ray 07/10/21 10:29 IMPRESSION: Cardiomegaly and Congestive changes. Electronically Signed: Bronson Dunbar MD at 11:30 EDT , Critical Care Time Critical Care Time: Yes Critical care time (excluding procedures): 30-74 minutes (35 min), Including time spent:, Discussing w/Patient &/or Family/Case Loader Operator, Discussing w/Consultants, Arranging Admission or Transfer and Performing Direct Patient Care at Bedside Discharge Plan Triage Chief Complaint: Shortness of Breath ED Provider: Missael Galaviz Dx/Rx/DC Orders Clinical Impression: Third degree heart block, Atherosclerotic heart disease, Large B-cell lymphoma, Essential hypertension Prescriptions: No Action pantoprazole 20 mg tablet,delayed release (DR/EC) 20 mg PO DAILY RF: 0 cholecalciferol (vitamin D3) 125 mcg (5,000 unit) capsule 125 mcg PO TID RF: 0 metoprolol succinate 25 mg tablet extended release 24 hr 25 mg PO DAILY Qty: 30 RF: 11 nitroglycerin [Nitrostat] 0.4 mg tablet, sublingual 0.4 mg sublingual Q5-15M PRN (Reason: chest pain) Qty: 25 RF: 3 atorvastatin 40 mg tablet 40 mg PO QHS RF: 0 clopidogrel 75 MG tablet 75 mg PO DAILY RF: 0 lisinopril 10 MG tablet 10 mg PO DAILY RF: 0 aspirin [Adult Low Dose Aspirin] 81 mg tablet,delayed release (DR/EC) 81 mg PO DAILY RF: 0 [facility] [facility] [[facility]] - Disposition Disposition: Acute Care Hospital
[2021-07-10 11:01] LABS: Absolute Lymphocyte Count 1.03 X10^3/uL (0.83-4.51); Absolute Neutrophil Count 4.7 X10^3/uL (2.0-7.7); Basophil# 0.04 X10^3/uL; Basophil% 0.6 % (0-1); Eosinophil# 0.44 X10^3/uL; Eosinophils% 6.4 % (0-5); Hematocrit 38.7 % (40-54); Hemoglobin 13.7 g/dL (13.0-16.5); Lymphocyte # 1.03 X10^3/ul (0.83-4.51); Lymphocyte % 14.9 % (19-41); Mean Corp Hgb Conc 35.4 g/dL (32-36); Mean Corpuscular Hgb 34.1 pg (27.0-32.0); Mean Corpuscular Volume 96.3 fL (80-94); Mean Platelet Vol. 10.1 fl (6.2-12.0); Monocyte# 0.68 X10^3/uL; Monocyte% 9.8 % (0-10); NRBC Flagged by Analyzer 0 % (0-5); Neutrophil # 4.69 X10^3/uL (2.7-7.7); Neutrophil % 67.9 % (47-70); Platelet Count 199 K/mm3 (150-450); RBC Distribution Width CV 12.1 % (11.6-14.6); RBC Distribution Width SD 42.5 fl (35.1-43.9); Red Blood Count 4.02 M/mm3 (4.6-6.2); White Blood Count 6.9 K/mm3 (4.4-11.0)
[2021-07-10 11:19] LABS: ALB/GLOB Ratio 1.2 RATIO (0.9-2.4); AST(SGOT) 15 U/L (15-37); Alanine Aminotransfer ALT/SGPT 27 U/L (16-61); Albumin, Serum 3.8 g/dL (3.2-5.0); Alkaline Phosphatase 67 U/L (45-117); Anion Gap 6 (5-15); BUN 20 mg/dL (7-18); BUN/Creat Ratio 19.2 RATIO (10-20); Calcium,Total 8.8 mg/dL (8.5-10.1); Chloride 110 mmol/L (98-107); Creatinine, Serum 1.04 mg/dL (0.70-1.30); EST Glomerular Filtration Rate 74 mL/min (>60); Est Glom Filt Rate - Afr Amer 90 mL/min (>60); Estimated Creatinine Clearance 64.34 ml/min; Globulin 3.1 g/dL (2.2-4.2); Glucose 90 mg/dL (74-106); Magnesium 1.9 mg/dL (1.6-2.6); Potassium 4.3 mmol/L (3.5-5.1); Protein, Total 6.9 g/dL (6.4-8.2); Sodium Level 140 mmol/L (136-145); Troponin-I HS 22 pg/mL (3.0-78.0)
[2021-07-10 11:56] LABS: Prothrombin Time (Protime)PT. 13.1 SECONDS (11.7-14.9)
[2021-07-10 11:57] LABS: Partial Thromboplast Time 27.5 Seconds (24.1-36.2)
--- NOTE | 2021-07-10 16:33 | ED.RN ---
requests to be called when bed assignment is made for the [facility]. Kelly [phone]
--- NOTE | 2021-07-10 18:09 | ED.RN ---
Kelly, , notified of bed assignment and ETA of [phone].
== END 2021-07-10 19:39 | disposition short-term general hospital (02) ==
PROVIDERS: Emergency Provider Emergency Medicine; Visit Provider Emergency Medicine
DX: I44.2 Atrioventricular block, complete (principal); C82.40 Follicular lymphoma grade IIIb, unspecified site; I25.10 Atherosclerotic heart disease of native coronary artery without angina pectoris; I10 Essential (primary) hypertension; E78.00 Pure hypercholesterolemia, unspecified; Z79.899 Other long term (current) drug therapy; Z85.46 Personal history of malignant neoplasm of prostate; Z79.82 Long term (current) use of aspirin; Z95.1 Presence of aortocoronary bypass graft; Z87.891 Personal history of nicotine dependence
CPT/HCPCS: 36591; 71045; 80053; 83735; 84484; 85025; 85610; 85730; 99285; A4216